=== PATIENT | male | born 1965 | race Caucasian/White ===

== ENCOUNTER 2020-02-24 14:45 | Outpatient (REF) | payer OTHER, SELFPAY | END 2020-02-24 14:46 | disposition home or self-care (01) | LOC: HO.LAB 14:45 | PROVIDERS: Visit Provider Internal Medicine | DX: Z20.828 Contact with and (suspected) exposure to other viral communicable diseases (principal) | CPT/HCPCS: C9803; U0003 ==

== ENCOUNTER → 2020-05-25 08:13 | Outpatient (BNVA) | payer OTHER, SELFPAY | PROVIDERS: PCP Internal Medicine; Visit Provider Physician Assistant ==

== ENCOUNTER 2020-06-10 08:51 | Day surgery (SDC) | payer OTHER, SELFPAY ==
[2020-06-04 14:10] VITALS: BMI 36.0
--- NOTE | 2020-06-09 10:59 | P.CONAN_ITS ---
Documented by User: Silvana Patterson 06/09/20 11:00 HPI - Anesthesia Eval Consult details Narrative: 54yo M for Colonoscopy [facility] Active Problems Active Problems: All Active Problems (Updated 05/25/20 @ 08:56 by Ashley Kapadia PA-C) Abdominal pain (Acute) Poor historian (Acute) Screening and evaluation for vasectomy (Acute) Physical exam (Acute) Past Medical History Medical History Abdominal pain Perianal abscess Physical exam Screening and evaluation for vasectomy Family History Family History Mother Cancer Father Alzheimer disease Surgical History Surgical History H/O hemorrhoidectomy Social History Social History Alcohol intake: never Smoking Status: Never smoker Advance Directives Information Provided: No Current occupational status: unemployed Meds Allergies Allergy/AdvReac Type Severity Reaction Status Date / Time No Known Allergies Allergy Verified 05/25/20 08:15 Exam Exam Date and Time: June 09, 2020 1059 Height,Weight and Vital Signs: Height 6 ft 1 in Weight 123.831 kg Assessment and Plan Assessment Anesthesia Assessment: Chart Reviewed Documented by User: Jenny Bianchi 06/10/20 09:21 [facility] Past Medical History Medical History Abdominal pain Perianal abscess Physical exam Screening and evaluation for vasectomy Family History Family History Mother Cancer Father Alzheimer disease Surgical History Surgical History H/O hemorrhoidectomy Social History Social History Alcohol intake: never Smoking Status: Never smoker Advance Directives Information Provided: No Current occupational status: unemployed Meds Allergies Allergy/AdvReac Type Severity Reaction Status Date / Time No Known Allergies Allergy Verified 05/25/20 08:15 Exam Airway Mallampati Class: II Partial: Upper Loose/Missing/Broken Teeth: Yes and Upper Heart: RRR Lungs: CTA Assessment and Plan Assessment Anesthesia Assessment: Anesthesia Plan Discussed and Chart Reviewed Final Anesthetic Review NPO: Yes ASA Class: II Final Preanesthetic Review: Meds/Allgs Chart Reviewed, Consent Obtained/Reviewed and Anes Risks/Benef Reviewed Patient Risk: Low Procedure Risk: Low Anesthetic Plan Anesthetic Plan: MAC: Disposition: Standard PACU
--- NOTE | 2020-06-10 09:16 | P.OP_ITS ---
Operative Note Operative Note Date of Service: 06/10/20 Narrative: Pre-op diagnosis: Colon cancer screening, abdominal pain Post-op diagnosis: other (Colon polyps, diverticulosis, hemorrhoids) Procedure: COLONOSCOPY TILL CECUM WITH BIOPSIES AND SNARE POLYPECTOMY Consent: Indications for the procedure and potential complications of bleeding, perforation, reaction to medications and missed diagnosis were discussed with the patient and informed consent was obtained. Instrument: Olympus PCF H 190 L variable stiffness pediatric colonoscope Monitoring: Vital signs and clinical assessment, intermittent blood pressure monitoring, continuous EKG monitoring, Pulse oximetry and Carbon Dioxide monitoring were done throughout the procedure. Colon withdrawl time was 20 minutes. Procedure: The patient was placed in the left lateral decubitis position and pre-procedure medications were administered. After a digital rectal examination of the ano-rectum, the video colonoscope was inserted into the rectum and advanced through the colon to the cecum. The colonoscope was slowly withdrawn in a retrograde panoramic fashion and the colon mucosa was carefully examined including a retroflexed view of the rectum. Findings and interventions are described below. Procedure Difficulty: Without difficulty Findings: Terminal Ileum: Not evaluated Cecum: A 2-3 mm polyp was removed by cold biopsy. Ascending Colon: A 10 mm sessile polyp in the proximal ascending colon removed with a cold snare and remaining polyp was removed with the cold biopsy. Transverse Colon: Normal Descending Colon: Normal Sigmoid Colon: 10 mm sessile polyp was removed with a cold snare and moderate diverticulosis Rectum: Normal Ano-rectum: Moderate internal hemorrhoids Colon preparation: Good after copious irrigation Impression and Post Procedure Diagnosis: Colonoscopy Findings: Three small to medium sized polyps removed Moderate diverticulosis seen in the sigmoid colon Moderate hemorrhoids on retroflexed exam. Plan: Await pathology results Patient has an appointment on 07/08/20 in the GI Clinic with JESSICA Galvez. Repeat Colonoscopy interval based on path results - in 3-5 years if polyps are adenomatous and 10 years if polyps are hyperplastic. Above findings were reviewed with the patient and colon polyps and diverticulosis handouts were given in the discharge area Surgeon: Barrett Camacho MD Anesthesia: MAC (Gerda Shaw, IRENE) Account Executive Metalworking: Kesha Ballard Estimated blood loss (mL): 0 Pathology: other (A. cecal polyp x 1, B. AC polyp x 1, C. SC polyp x 1) Condition: stable Disposition: PACU
--- NOTE | 2020-06-10 09:16 | MHC.SHP ---
Pre-Procedural Eval Section A The patient is an INPATIENT: No Changes since office visit: Yes Patient answered all questions; No Cold of Flu in the past 2 weeks, No New Medical Problems and No Changes in Medication The History & Physical has been completed within 30 days and I have reviewed it.: Yes Section B Chief Complaint: Screening Allergies: Allergies Allergy/AdvReac Type Severity Reaction Status Date / Time No Known Allergies Allergy Verified 05/25/20 08:15 Exam Surgical H&P Exam: Normal: Heart, Normal: Lungs, Normal: Extremities and Normal: Abdomen Plan Diagnosis/Plan: Unchanged I have reviewed the history and physical and performed a pertinent physical examination on my patient. No changes have occurred unless specified.
[2020-06-10 09:24] VITALS: BP 114/75; PULSE 57; RESP 18; TEMP 36.6; O2SAT 99
[2020-06-10] MEDS: Lactated Ringers 1,000 ML 100 ML IVCONT (09:40)
[2020-06-10 10:34] VITALS: BP 115/60; PULSE 65; RESP 20; TEMP 36.6; O2SAT 98
[2020-06-10 10:47] VITALS: BP 115/75; PULSE 72; RESP 18
== END 2020-06-10 11:45 | disposition home or self-care (01) ==
PROVIDERS: PCP Internal Medicine; Visit Provider Internal Medicine Gastroenterology
PROC: 0DJD8ZZ Inspection of Lower Intestinal Tract, Via Natural or Artificial Opening Endoscopic (ICD-10-PCS; CPT 45378; principal; 2020-06-10 09:50)
DX: Z12.11 Encounter for screening for malignant neoplasm of colon (principal); D12.0 Benign neoplasm of cecum; D12.2 Benign neoplasm of ascending colon; D12.5 Benign neoplasm of sigmoid colon; R10.9 Unspecified abdominal pain; K57.30 Diverticulosis of large intestine without perforation or abscess without bleeding; K64.8 Other hemorrhoids
CPT/HCPCS: 45385; 45380; 88305

== ENCOUNTER → 2020-07-08 12:31 | Outpatient (BNVA) | payer OTHER, SELFPAY | PROVIDERS: PCP Internal Medicine; Visit Provider Physician Assistant ==

== ENCOUNTER 2024-08-29 17:07 | Inpatient (IN) | payer OTHER, SELFPAY ==
--- OUTSIDE RECORDS SUMMARY | 2024-08-29 17:14 | XMS_ITS | Patient Health Record ---
Author Organization [facility] Address [address], [place] [id number] Care Team Providers Care Software Test And Validation Engineer Name Role Phone NO, PCP Primary Care Provider [phone] Iglesias Unavailable [phone] Reason For Referral No Information Plan Of Treatment No Information Insurance Providers Payer Name Payer Address Payer Phone Subscriber Number Group Number Insured Name Patient Relationship to Insured Coverage Start Date Coverage End Date [place] Medicaid Standard [address] [place] [address] [id number] Dmitriy Hillman Self - patient is the insured 2 2
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
[2024-08-29 17:34] VITALS: BMI 28.0
[2024-08-29 17:38] VITALS: BP 137/70; PULSE 68; RESP 16; TEMP 36; O2SAT 99
[2024-08-29 18:28] LABS: Anion Gap 12 (12-20); Blood Urea Nitrogen 12 mg/dL (9-16); Calcium 8.9 mg/dL (8.4-10.2); Carbon Dioxide 28 mmol/L (22-29); Chloride 104 mmol/L (96-108); Creatinine Clr Calc Pharmacy 149.7; Estimated Glomerular Filt Rate > 60; Potassium 3.8 mmol/L (3.3-5.1); Sodium 140 mmol/L (135-145)
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
--- NOTE | 2024-08-29 19:33 | PC.NURSE ---
Patient declined to sign JOSE M.
[2024-08-29 19:49] VITALS: BP 135/62; PULSE 83; RESP 16; TEMP 36.4; O2SAT 99
[2024-08-30 07:43] LABS: MANUAL DIFF FLAG NO
[2024-08-30 07:50] LABS: Hematocrit 35.3 % (42.0-52.0); Hemoglobin 11.9 g/dl (14.0-18.0); Imm Gran Abs Auto 0.01 X10*3/uL (0.00-0.03); Imm Gran Pct Auto 0.2 % (0.0-0.4); Lymphocytes Absolute Auto 2.1 X10*3/uL (1.2-4.9); Mean Corpuscular HGB Conc 33.7 g/dl (31.0-36.0); Mean Corpuscular Hemoglobin 29.8 pg (27.0-33.0); Mean Corpuscular Volume 88.5 fL (80.0-98.0); NRBC Abs Auto 0.000 X10*3/uL (0.0-0.012); NRBC Pct Auto 0.0 /100WBC (0.0-0.2); Platelet Count 277 X10*3/uL (160-400); Red Blood Count 3.99 X10*6/uL (4.60-5.80); White Blood Count 5.7 X10*3/uL (4.8-10.8)
[2024-08-30 08:00] VITALS: BP 127/61; PULSE 80; RESP 14; TEMP 36; O2SAT 100
[2024-08-30 08:12] LABS: Alanine Aminotransferase 19 U/L (0-40); Albumin Level 3.6 g/dL (3.5-5.0); Alkaline Phosphatase 68 U/L (39-117); Aspartate Amino Transferase 28 U/L (5-37); Cholesterol 178 mg/dL (<200); HDL Cholesterol 60 mg/dL (>40); Hemoglobin A1C 98.1202 umol/L; Total Hemoglobin (HGBA1C) 3086.8472 umol/L; Total Protein 6.6 g/dL (6.5-8.0); Triglycerides 69 mg/dL (<150)
[2024-08-30 08:26] LABS: Free T4 (Free Thyroxine) 0.92 ng/dL (0.71-1.85); Thyroid Stimulating Hormone 2.66 uIU/mL (0.32-4.0)
[2024-08-30 08:44] LABS: Folate 4.8 ng/mL (> or = 4.0); Vitamin B12 < 148 pg/mL (200-900)
--- NOTE | 2024-08-30 11:14 | HO.PM.IMCN ---
History of Present Illness Data of Consult Service Date: 08/30/24 Primary Care Provider: None Physician [facility] Reason for consult: Admission H&P Pt is a 59-year-old male with a PMH significant for?GERD, polysubstance use disorder, anxiety, depression, and bipolar disorder who is admitted to M3 psychiatry unit for increasing depression with SI with plan to cut himself. Pt reports has been having SI for many years, though worsening recently, and has been hearing voices and dreams telling him to kill himself. Medical consult for admission H&P. Pt complains acid reflux-like symptoms began earlier in the day after eating and taking medications. States has a burning sensation in epigastric area and in his throat. Reports previous hx of GERD that has been well-controlled in the past few years. Pt has not followed with a PCP in many years and not currently on any home medications. Denies chest pressure. ?No fever, chills, nausea, vomiting. Denies shortness or breath or difficulty breathing. Hx of IVDU, last injected 10 days ago. Review of Systems Review of Systems: Negative except for that which is stated in the HPI [facility] Medical History Perianal abscess Abdominal pain Screening and evaluation for vasectomy Physical exam Family History Mother Cancer Father Alzheimer disease Surgical History H/O hemorrhoidectomy Social History Household Members: None Household Members Other:: Lives with friends Housing: Apartment Do you presently have visiting nurse or other home services: No Alcohol intake: current Alcohol intake frequency: 3 or more drinks per day Patient Tobacco Use Status: Never used Tobacco e-Cigarette/Vaping Use: Never Used Substance Use Type: Crack/Cocaine Currently Displaying Signs/Symptoms of Drug Intoxication Withdrawal: No Have you been hit, kicked, punched, or otherwise hurt by someone within the past year? If so, by whom?: No Do you feel safe in your current relationship?: No Current Relationship Is there a partner from a previous relationship who is making you feel unsafe now?: No Are you made to feel afraid or neglected: No Advance Directives: No Advance Directives Information Provided: No Do you have thoughts of harming others: None Do you have a plan to hurt others: No Plan Recently lost weight without trying: No How much weight loss: Not applicable Eating poorly because of decreased appetite: No Nutrition screen score: 0 Nutrition Risks: No Nutritional Risk Poor oral hygiene: No Current occupational status: unemployed Meds Allergies Allergy/AdvReac Type Severity Reaction Status Date / Time No Known Allergies Allergy Verified 07/08/20 12:32 Active Medications: Current Medications Acetaminophen (Acetaminophen 325 Mg Tablet) 650 mg PO Q6H PRN PRN Reason: Headache/Pain, Scale 1-10 Al Hydroxide/Mg Hydroxide (Magnesium Hydrox/Alum Hydrox 30 Ml Oral.Susp) 30 ml PO Q6H PRN PRN Reason: Heartburn/Nausea Hydroxyzine HCl (Hydroxyzine Hcl 25 Mg Tablet) 25 mg PO Q6H PRN PRN Reason: mild anxiety Lorazepam (Lorazepam 1 Mg Tablet) 1 mg PO Q2H PRN PRN Reason: CIWA 8-11 Lorazepam (Lorazepam 1 Mg Tablet) 2 mg PO Q2H PRN PRN Reason: CIWA 12-15 Lorazepam (Lorazepam 1 Mg Tablet) 3 mg PO Q2H PRN PRN Reason: CIWA > 15, and call Magnesium Hydroxide (Milk Of Magnesia 30 Ml Oral.Susp) 30 ml PO DAILY PRN PRN Reason: Constipation Nicotine Polacrilex (Nicotine Polacrilex 2 Mg Gum) 4 mg BUCCAL Q2H PRN PRN Reason: Nicotine Cravings Thiamine HCl (Thiamine Hcl 100 Mg Tablet) 100 mg PO DAILY [facility] Last Admin: 08/30/24 08:44 Dose: 100 mg Trazodone HCl (Trazodone Hcl 50 Mg Tablet) 50 mg PO BEDTIME MRX1 PRN PRN Reason: Insomnia Home Medications ?Medication ?Instructions ?Recorded ?Confirmed ?Last Taken ?Type No Known Home Meds 07/08/20 08/29/24 Unknown History Physical Exam Vital Signs and Narrative: Vital Signs: Last Vital Signs Temp 96.8 F 08/30/24 08:00 Pulse 80 08/30/24 08:00 Resp 14 08/30/24 08:00 BP 127/61 08/30/24 08:00 Pulse Ox 100 08/30/24 08:00 O2 Del Method Room Air 08/30/24 08:00 BMI result Body Mass Index 28.0 General: AOx3, no acute distress Resp: CTA bilaterally CVS: S1, S2, RRR GI: +BS, NT, no distention Skin: Warm, dry Chest: NT to palpation Neuro: Cranial nerves II-XII grossly intact bilaterally. Motor grossly intact bilaterally Extremities: No edema Psych: Restless, slightly agitated Results Labs 08/30/24 07:20 08/29/24 18:07 Labs: Laboratory Results - last 24 hr 08/29/24 08/30/24 18:07 07:20 MCV 88.5 MCH 29.8 MCHC 33.7 RDW 13.7 Plt Count 277 MPV 8.6 L Immature Gran % (Auto) 0.2 Neut % (Auto) 51.4 Lymph % (Auto) 36.0 [place] % (Auto) 8.9 Eos % (Auto) 3.0 Baso % (Auto) 0.5 Lymph # (Auto) 2.1 [place] # (Auto) 0.5 Eos # (Auto) 0.2 Baso # (Auto) 0.0 Abs Immat Gran (auto) 0.01 Absolute Neuts (auto) 2.9 Absolute Nucleated RBC 0.000 Nucleated RBC % (auto) 0.0 Anion Gap 12 Estim Creat Clear Calc 149.7 Estimated GFR > 60 Random Glucose 100 Estimat Average Glucose 100 Hemoglobin A1c % 5.1 Calcium 8.9 Total Bilirubin 0.5 Direct Bilirubin 0.2 AST 28 ALT 19 Alkaline Phosphatase 68 Total Protein 6.6 Albumin 3.6 Triglycerides 69 Cholesterol 178 LDL Cholesterol, Calc 105 H HDL Cholesterol 60 Vitamin B12 < 148 L Folate 4.8 TSH 2.66 Free T4 0.92 Assessment and Plan (1) Medical clearance for psychiatric admission: Status: Acute Plan Pt is a 59-year-old male with a PMH significant for?GERD, polysubstance use disorder, anxiety, depression, and bipolar disorder who is admitted to M3 psychiatry unit for increasing depression with SI with plan to cut himself. Pt reports has been having SI for many years, though worsening recently, and has been hearing voices and dreams telling him to kill himself. Medical consult for admission H&P. Mood disorder Plan as per psychiatry GERD Complaining of epigastric and throat burning after eating and taking meds Omeprazole 40mg daily x14 days Pt otherwise has no acute medical complaints or known chronic medical conditions. Will sign off for now. Thank you for allowing us to participate in the care of this pt. Please re-consult if any acute issue or need arises.
[2024-08-30] MEDS: Magnesium Hydrox/Alum Hydrox 30 ML ORAL.SUSP PO (13:42)
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
[2024-08-30 20:07] VITALS: BP 135/75; PULSE 54; RESP 16; TEMP 36.2; O2SAT 97
[2024-08-31 08:00] VITALS: BP 103/52; PULSE 58; RESP 17; TEMP 35.9; O2SAT 99
--- NOTE | 2024-08-31 14:38 | P.PNPSI_ITS ---
Subjective Subjective Date of Service: 08/31/24 Reason For Visit: Mental Health Crisis Interim History: improved, fewer AH. per staff, slept 8 hours. isolative. CAH to kill self. Mental Status Exam Mental Status Exam Narrative: adequately dressed and groomed. cooperative. no PMA/PMR. speech nml rate, amount, loudness, tone, latency. thoughts linear, logical. affect full range, flexible, normo-intense, non-labile. mood improving. AH lessening. no SI/HI/VH expressed. Diagnostics Vital Signs (24Hr): Vital Signs - 24 hr 08/30/24 20:07 08/31/24 08:00 Temperature 97.2 F 96.6 F L Pulse Rate 54 58 Respiratory Rate 16 17 Blood Pressure 135/75 103/52 L Pulse Oximetry 97 99 Oxygen Delivery Method Room Air Room Air BMI result Body Mass Index 28.0 Labs 08/30/24 07:20 08/29/24 18:07 Labs: Laboratory Results - last 48 hr 08/29/24 08/30/24 18:07 07:20 WBC 5.7 RBC 3.99 L Hgb 11.9 L Hct 35.3 L MCV 88.5 MCH 29.8 MCHC 33.7 RDW 13.7 Plt Count 277 MPV 8.6 L Immature Gran % (Auto) 0.2 Neut % (Auto) 51.4 Lymph % (Auto) 36.0 [place] % (Auto) 8.9 Eos % (Auto) 3.0 Baso % (Auto) 0.5 Lymph # (Auto) 2.1 [place] # (Auto) 0.5 Eos # (Auto) 0.2 Baso # (Auto) 0.0 Abs Immat Gran (auto) 0.01 Absolute Neuts (auto) 2.9 Absolute Nucleated RBC 0.000 Nucleated RBC % (auto) 0.0 Sodium 140 Potassium 3.8 Chloride 104 Carbon Dioxide 28 Anion Gap 12 BUN 12 Creatinine 0.65 Estim Creat Clear Calc 149.7 Estimated GFR > 60 Random Glucose 100 Estimat Average Glucose 100 Hemoglobin A1c % 5.1 Calcium 8.9 Total Bilirubin 0.5 Direct Bilirubin 0.2 AST 28 ALT 19 Alkaline Phosphatase 68 Total Protein 6.6 Albumin 3.6 Triglycerides 69 Cholesterol 178 LDL Cholesterol, Calc 105 H HDL Cholesterol 60 Vitamin B12 < 148 L Folate 4.8 TSH 2.66 Free T4 0.92 Medications Medications Current Medications Acetaminophen (Acetaminophen 325 Mg Tablet) 650 mg PO Q6H PRN PRN Reason: Headache/Pain, Scale 1-10 Al Hydroxide/Mg Hydroxide (Magnesium Hydrox/Alum Hydrox 30 Ml Oral.Susp) 30 ml PO Q6H PRN PRN Reason: Heartburn/Nausea Last Admin: 08/30/24 13:42 Dose: 30 ml Fluphenazine HCl (Fluphenazine Hcl 2.5 Mg Tablet) 2.5 mg PO BID [facility] Last Admin: 08/31/24 08:43 Dose: 2.5 mg Fluphenazine HCl (Fluphenazine Hcl 2.5 Mg Tablet) 2.5 mg PO Q4H PRN PRN Reason: agitation/AH Hydroxyzine HCl (Hydroxyzine Hcl 25 Mg Tablet) 25 mg PO Q6H PRN PRN Reason: mild anxiety Magnesium Hydroxide (Milk Of Magnesia 30 Ml Oral.Susp) 30 ml PO DAILY PRN PRN Reason: Constipation Nicotine Polacrilex (Nicotine Polacrilex 2 Mg Gum) 4 mg BUCCAL Q2H PRN PRN Reason: Nicotine Cravings Omeprazole (Omeprazole 40 Mg Capsule.Dr) 40 mg PO DAILY@0630 [facility] Stop: 09/12/24 06:31 Last Admin: 08/31/24 06:40 Dose: 40 mg Sertraline HCl (Sertraline Hcl 50 Mg Tablet) 50 mg PO DAILY [facility] Last Admin: 08/31/24 08:42 Dose: 50 mg Thiamine HCl (Thiamine Hcl 100 Mg Tablet) 100 mg PO DAILY [facility] Last Admin: 08/31/24 08:44 Dose: 100 mg Trazodone HCl (Trazodone Hcl 50 Mg Tablet) 50 mg PO BEDTIME MRX1 PRN PRN Reason: Insomnia Allergies Allergies Allergy/AdvReac Type Severity Reaction Status Date / Time No Known Allergies Allergy Verified 07/08/20 12:32 Assessment & Plan Assessment & Plan (1) Auditory hallucinations: Status: Acute Code(s): R44.0 - Auditory hallucinations (2) Depressive disorder: Status: Acute Code(s): F32.A - Depression, unspecified (3) Medical clearance for psychiatric admission: Status: Acute Code(s): Z00.8 - Encounter for other general examination Assessment and Plan: Pt is a 59-year-old male with a PMH significant for?GERD, polysubstance use disorder, anxiety, depression, and bipolar disorder who is admitted to M3 psychiatry unit for increasing depression with SI with plan to cut himself. Pt reports has been having SI for many years, though worsening recently, and has been hearing voices and dreams telling him to kill himself. Medical consult for admission H&P. Mood disorder Plan as per psychiatry GERD Complaining of epigastric and throat burning after eating and taking meds Omeprazole 40mg daily x14 days Pt otherwise has no acute medical complaints or known chronic medical conditions. Will sign off for now. Thank you for allowing us to participate in the care of this pt. Please re-consult if any acute issue or need arises. Plan 08/30: start prolixin 2.5 BID with PRNs for AH. start zoloft 50 daily for depression. supportive care for cocaine and opioid withdrawal. low scores on CIWA overnight and reportedly hasn't drunk in 4 days, so DC CIWA protocol as not necessary. 08/31: mood improving, AH decreasing. c/o VERGARA. start ibuprofen PRN. low B12 - start supplementation. Reason for continued inpatient stay Substantial Risk for: inability to function Time Spent With Patient Time: Total time managing care of this patient today ____ minutes.
--- NOTE | 2024-08-31 14:53 | MHC.RECOVRN ---
Met with pt to discuss substance use and drinking habits. Pt interested in discussing NADIR with provider. Pt declined outpatient DENISE appointment at the [facility] for further treatment. No further questions or concerns offered at this time. Discussed with Shahab Michel NP.
[2024-08-31 20:00] VITALS: BP 125/68; PULSE 54; RESP 16; TEMP 36.4; O2SAT 99
[2024-09-01 07:49] VITALS: BP 114/58; PULSE 55; RESP 20; TEMP 35.7; O2SAT 20
--- NOTE | 2024-09-01 12:55 | HO.PSYCHPN ---
Subjective Subjective Date of Service: 09/01/24 Reason For Visit: Mental Health Crisis Interim History: calm, cooperative, pleasant. so-so. c/o insomnia and nightmares, also dry mouth. agrees to change antipsychotic and to add prazosin. per staff, taking meds. CAH at [facility]. refusing groups. racing thoughts. tossing and turning 2/2 nightmares. slept 8 hours. Mental Status Exam Mental Status Exam Narrative: adequately dressed and groomed. cooperative. no PMA/PMR. speech nml rate, amount, loudness, tone, latency. thoughts linear, logical. affect full range, flexible, normo-intense, non-labile. mood improving. AH lessening. no SI/HI/VH expressed. Diagnostics Vital Signs (24Hr): Vital Signs - 24 hr 08/31/24 20:00 09/01/24 07:49 Temperature 97.6 F 96.2 F L Pulse Rate 54 55 Respiratory Rate 16 20 Blood Pressure 125/68 114/58 L Pulse Oximetry 99 20 L Oxygen Delivery Method Room Air Room Air BMI result Body Mass Index 28.0 Labs 08/30/24 07:20 08/29/24 18:07 Medications Medications Current Medications Acetaminophen (Acetaminophen 325 Mg Tablet) 650 mg PO Q6H PRN PRN Reason: Headache/Pain, Scale 1-10 Last Admin: 08/31/24 20:37 Dose: 650 mg Al Hydroxide/Mg Hydroxide (Magnesium Hydrox/Alum Hydrox 30 Ml Oral.Susp) 30 ml PO Q6H PRN PRN Reason: Heartburn/Nausea Last Admin: 08/30/24 13:42 Dose: 30 ml Cyanocobalamin (Cyanocobalamin (Vitamin B-12) 1,000 Mcg Tablet) 1,000 mcg PO DAILY [facility] Last Admin: 09/01/24 08:41 Dose: 1,000 mcg Folic Acid (Folic Acid 1 Mg Tablet) 1 mg PO DAILY [facility] Last Admin: 09/01/24 08:41 Dose: 1 mg Haloperidol (Haloperidol 0.5 Mg Tablet) 2.5 mg PO BID [facility] Haloperidol (Haloperidol 0.5 Mg Tablet) 2.5 mg PO Q6H PRN PRN Reason: agitation Ibuprofen (Ibuprofen 600 Mg Tablet) 600 mg PO Q6H PRN PRN Reason: pain (pain scale 1-10) Magnesium Hydroxide (Milk Of Magnesia 30 Ml Oral.Susp) 30 ml PO DAILY PRN PRN Reason: Constipation Nicotine Polacrilex (Nicotine Polacrilex 2 Mg Gum) 4 mg BUCCAL Q2H PRN PRN Reason: Nicotine Cravings Omeprazole (Omeprazole 40 Mg Capsule.Dr) 40 mg PO DAILY@0630 [facility] Stop: 09/12/24 06:31 Last Admin: 09/01/24 06:42 Dose: 40 mg Prazosin HCl (Prazosin Hcl 1 Mg Capsule) 1 mg PO BEDTIME NICKI; Protocol Sertraline HCl (Sertraline Hcl 50 Mg Tablet) 50 mg PO DAILY [facility] Last Admin: 09/01/24 08:41 Dose: 50 mg Thiamine HCl (Thiamine Hcl 100 Mg Tablet) 100 mg PO DAILY [facility] Last Admin: 09/01/24 08:41 Dose: 100 mg Trazodone HCl (Trazodone Hcl 50 Mg Tablet) 50 mg PO BEDTIME MRX1 PRN PRN Reason: Insomnia Allergies Allergies Allergy/AdvReac Type Severity Reaction Status Date / Time No Known Allergies Allergy Verified 07/08/20 12:32 Assessment & Plan Assessment & Plan (1) Auditory hallucinations: Status: Acute Code(s): R44.0 - Auditory hallucinations (2) Depressive disorder: Status: Acute Code(s): F32.A - Depression, unspecified (3) Medical clearance for psychiatric admission: Status: Acute Code(s): Z00.8 - Encounter for other general examination Assessment and Plan: Pt is a 59-year-old male with a PMH significant for?GERD, polysubstance use disorder, anxiety, depression, and bipolar disorder who is admitted to psychiatry unit for increasing depression with SI with plan to cut himself. Pt reports has been having SI for many years, though worsening recently, and has been hearing voices and dreams telling him to kill himself. Medical consult for admission H&P. Mood disorder Plan as per psychiatry GERD Complaining of epigastric and throat burning after eating and taking meds Omeprazole 40mg daily x14 days Pt otherwise has no acute medical complaints or known chronic medical conditions. Will sign off for now. Thank you for allowing us to participate in the care of this pt. Please re-consult if any acute issue or need arises. Plan 08/30: start prolixin 2.5 BID with PRNs for AH. start zoloft 50 daily for depression. supportive care for cocaine and opioid withdrawal. low scores on CIWA overnight and reportedly hasn't drunk in 4 days, so DC CIWA protocol as not necessary. 08/31: mood improving, AH decreasing. c/o VERGARA. start ibuprofen PRN. low B12 - start supplementation. 09/01: nightmares, poor sleep, dry mouth. DC prolixin, start haldol. add prazosin at [facility]. Reason for continued inpatient stay Substantial Risk for: inability to function Time Spent With Patient Time: Total time managing care of this patient today __25__ minutes.
[2024-09-01 21:40] VITALS: BP 127/70; PULSE 64; RESP 16; TEMP 35.9; O2SAT 100
[2024-09-02 07:32] VITALS: BP 117/55; PULSE 63; RESP 14; TEMP 36; O2SAT 99
--- NOTE | 2024-09-02 14:56 | P.PNPSI_ITS ---
Subjective Subjective Date of Service: 09/02/24 Reason For Visit: Mental Health Crisis Interim History: calm, cooperative. c/o difficulty sleeping. agreeable to DC haldol and try a more sedating antipsychotic. also to increase prazosin. discussion held around naltrexone and antabuse for AUD; pt will think about it. per staff, dep 7 anx 8. eating 50%. not attending groups. c/o AH calling his name at night. no CAH. eves AH lessened. taking meds, c/o nightmares. slept 7 hours. Mental Status Exam Mental Status Exam Narrative: adequately dressed and groomed. cooperative. no PMA/PMR. speech nml rate, amount, loudness, tone, latency. thoughts linear, logical. affect full range, flexible, normo-intense, non-labile. mood improving. AH lessening. no SI/HI/VH expressed. Diagnostics Vital Signs (24Hr): Vital Signs - 24 hr 09/01/24 21:40 09/02/24 07:32 Temperature 96.6 F L 96.8 F Pulse Rate 64 63 Respiratory Rate 16 14 Blood Pressure 127/70 117/55 L Pulse Oximetry 100 99 Oxygen Delivery Method Room Air Room Air BMI result Body Mass Index 28.0 Labs 08/30/24 07:20 08/29/24 18:07 Medications Medications Current Medications Acetaminophen (Acetaminophen 325 Mg Tablet) 650 mg PO Q6H PRN PRN Reason: Headache/Pain, Scale 1-10 Last Admin: 08/31/24 20:37 Dose: 650 mg Al Hydroxide/Mg Hydroxide (Magnesium Hydrox/Alum Hydrox 30 Ml Oral.Susp) 30 ml PO Q6H PRN PRN Reason: Heartburn/Nausea Last Admin: 08/30/24 13:42 Dose: 30 ml Cyanocobalamin (Cyanocobalamin (Vitamin B-12) 1,000 Mcg Tablet) 1,000 mcg PO DAILY NICKI Last Admin: 09/02/24 08:28 Dose: 1,000 mcg Folic Acid (Folic Acid 1 Mg Tablet) 1 mg PO DAILY [facility]I Last Admin: 09/02/24 08:28 Dose: 1 mg Haloperidol (Haloperidol 5 Mg Tablet) 2.5 mg PO BID NICKI Last Admin: 09/02/24 08:30 Dose: 2.5 mg Haloperidol (Haloperidol 5 Mg Tablet) 2.5 mg PO Q6H PRN PRN Reason: agitation Ibuprofen (Ibuprofen 600 Mg Tablet) 600 mg PO Q6H PRN PRN Reason: pain (pain scale 1-10) Magnesium Hydroxide (Milk Of Magnesia 30 Ml Oral.Susp) 30 ml PO DAILY PRN PRN Reason: Constipation Nicotine Polacrilex (Nicotine Polacrilex 2 Mg Gum) 4 mg BUCCAL Q2H PRN PRN Reason: Nicotine Cravings Omeprazole (Omeprazole 40 Mg Capsule.Dr) 40 mg PO DAILY@0630 [facility] Stop: 09/12/24 06:31 Last Admin: 09/02/24 06:27 Dose: 40 mg Prazosin HCl (Prazosin Hcl 1 Mg Capsule) 1 mg PO BEDTIME [facility]ICKI; Protocol Last Admin: 09/01/24 21:47 Dose: 1 mg Sertraline HCl (Sertraline Hcl 50 Mg Tablet) 50 mg PO DAILY [facility] Last Admin: 09/02/24 08:28 Dose: 50 mg Thiamine HCl (Thiamine Hcl 100 Mg Tablet) 100 mg PO DAILY [facility] Last Admin: 09/02/24 08:28 Dose: 100 mg Trazodone HCl (Trazodone Hcl 50 Mg Tablet) 50 mg PO BEDTIME MRX1 PRN PRN Reason: Insomnia Last Admin: 09/02/24 02:31 Dose: 50 mg Allergies Allergies Allergy/AdvReac Type Severity Reaction Status Date / Time No Known Allergies Allergy Verified 07/08/20 12:32 Assessment & Plan Assessment & Plan (1) Auditory hallucinations: Status: Acute Code(s): R44.0 - Auditory hallucinations (2) Depressive disorder: Status: Acute Code(s): F32.A - Depression, unspecified (3) Medical clearance for psychiatric admission: Status: Acute Code(s): Z00.8 - Encounter for other general examination Assessment and Plan: Pt is a 59-year-old male with a PMH significant for?GERD, polysubstance use disorder, anxiety, depression, and bipolar disorder who is admitted to psychiatry unit for increasing depression with SI with plan to cut himself. Pt reports has been having SI for many years, though worsening recently, and has been hearing voices and dreams telling him to kill himself. Medical consult for admission H&P. Mood disorder Plan as per psychiatry GERD Complaining of epigastric and throat burning after eating and taking meds Omeprazole 40mg daily x14 days Pt otherwise has no acute medical complaints or known chronic medical conditions. Will sign off for now. Thank you for allowing us to participate in the care of this pt. Please re-consult if any acute issue or need arises. Plan 08/30: start prolixin 2.5 BID with PRNs for AH. start zoloft 50 daily for depression. supportive care for cocaine and opioid withdrawal. low scores on CIWA overnight and reportedly hasn't drunk in 4 days, so DC CIWA protocol as not necessary. 08/31: mood improving, AH decreasing. c/o VERGARA. start ibuprofen PRN. low B12 - start supplementation. 09/01: nightmares, poor sleep, dry mouth. DC prolixin, start haldol. add prazosin at HS. 09/02: c/o worsened sleep, etiology unclear. possible akathisia. DC haldol and start trial of zyprexa 10 QHS. increase prazosin to 2 mg QHS. AH continue to improve. otherwise continue current mgmt. Reason for continued inpatient stay Substantial Risk for: inability to function and rapid decompensation Time Spent With Patient Time: Total time managing care of this patient today __25__ minutes.
[2024-09-02 20:38] VITALS: BP 101/57; PULSE 61; RESP 16; TEMP 36.3; O2SAT 98
[2024-09-03 07:48] VITALS: BP 123/72; PULSE 65; RESP 20; TEMP 36.7; O2SAT 99
--- NOTE | 2024-09-03 09:19 | P.PNPSI_ITS ---
Subjective Subjective Date of Service: 09/03/24 Reason For Visit: Mental Health Crisis Subjective Notes: Conditional Voluntary Medical Problems Affecting Mental Status: No Interim History: Patient notes that his mood is not so good. he reports mild anxiety and severe depression. He is unable to get a good or restful sleep. He reports CAH to kill himself; the voices are usually present at night. The voices are not the reason for his sleep disturbance as he was able to sleep with them. He constantly thinks about his current mental health status and believes there is no way to get relief. He denies HI/VH. Patient is [place]-speaking only. 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 Medication Compliance: Yes Side effects from medications: No Attending Groups: No Review of Systems Acute medical concerns: No Mental Status Exam Mental Status Exam Narrative: Appearance: Casually dressed, adequate hygiene Behavior: Calm and cooperative throughout the interview. Eye contact is appropriate, and there are no signs of psychomotor agitation or retardation Speech: Normal volume and prosody Thought process: logical and goal-directed Thought content: SI Mood: Not so good Affect: Flat SI:reports HI:denies VH/AH:reports CAH Delusions: None Insight/judgment: Fair insight and judgment Memory/cog: Alert, oriented x 4. grossly intact to conversational testing Diagnostics Vital Signs (24Hr): Vital Signs - 24 hr 09/02/24 20:38 09/03/24 07:48 Temperature 97.3 F 98.1 F Pulse Rate 61 65 Respiratory Rate 16 20 Blood Pressure 101/57 L 123/72 Pulse Oximetry 98 99 Oxygen Delivery Method Room Air Room Air BMI result Body Mass Index 28.0 Labs 08/30/24 07:20 08/29/24 18:07 Medications Medications Current Medications Acetaminophen (Acetaminophen 325 Mg Tablet) 650 mg PO Q6H PRN PRN Reason: Headache/Pain, Scale 1-10 Last Admin: 08/31/24 20:37 Dose: 650 mg Al Hydroxide/Mg Hydroxide (Magnesium Hydrox/Alum Hydrox 30 Ml Oral.Susp) 30 ml PO Q6H PRN PRN Reason: Heartburn/Nausea Last Admin: 08/30/24 13:42 Dose: 30 ml Cyanocobalamin (Cyanocobalamin (Vitamin B-12) 1,000 Mcg Tablet) 1,000 mcg PO DAILY NICKI Last Admin: 09/03/24 08:40 Dose: 1,000 mcg Folic Acid (Folic Acid 1 Mg Tablet) 1 mg PO DAILY [facility] Last Admin: 09/03/24 08:40 Dose: 1 mg Ibuprofen (Ibuprofen 600 Mg Tablet) 600 mg PO Q6H PRN PRN Reason: pain (pain scale 1-10) Magnesium Hydroxide (Milk Of Magnesia 30 Ml Oral.Susp) 30 ml PO DAILY PRN PRN Reason: Constipation Nicotine Polacrilex (Nicotine Polacrilex 2 Mg Gum) 4 mg BUCCAL Q2H PRN PRN Reason: Nicotine Cravings Olanzapine (Olanzapine 10 Mg Tablet) 10 mg PO BEDTIME [facility] Last Admin: 09/02/24 21:29 Dose: 10 mg Omeprazole (Omeprazole 40 Mg Capsule.Dr) 40 mg PO DAILY@0630 [facility] Stop: 09/12/24 06:31 Last Admin: 09/03/24 06:51 Dose: 40 mg Prazosin HCl (Prazosin Hcl 1 Mg Capsule) 2 mg PO BEDTIME [facility]; Protocol Last Admin: 09/02/24 21:29 Dose: 2 mg Sertraline HCl (Sertraline Hcl 50 Mg Tablet) 50 mg PO DAILY [facility] Last Admin: 09/03/24 08:40 Dose: 50 mg Thiamine HCl (Thiamine Hcl 100 Mg Tablet) 100 mg PO DAILY [facility] Last Admin: 09/03/24 08:40 Dose: 100 mg Trazodone HCl (Trazodone Hcl 50 Mg Tablet) 50 mg PO BEDTIME MRX1 PRN PRN Reason: Insomnia Last Admin: 09/03/24 01:37 Dose: 50 mg Allergies Allergies Allergy/AdvReac Type Severity Reaction Status Date / Time No Known Allergies Allergy Verified 07/08/20 12:32 Assessment & Plan Assessment & Plan (1) Auditory hallucinations: Status: Acute Code(s): R44.0 - Auditory hallucinations (2) Depressive disorder: Status: Acute Code(s): F32.A - Depression, unspecified (3) Medical clearance for psychiatric admission: Status: Acute Code(s): Z00.8 - Encounter for other general examination Assessment and Plan: Pt is a 59-year-old male with a PMH significant for?GERD, polysubstance use disorder, anxiety, depression, and bipolar disorder who is admitted to psychiatry unit for increasing depression with SI with plan to cut himself. Pt reports has been having SI for many years, though worsening recently, and has been hearing voices and dreams telling him to kill himself. Medical consult for admission H&P. Mood disorder Plan as per psychiatry GERD Complaining of epigastric and throat burning after eating and taking meds Omeprazole 40mg daily x14 days Pt otherwise has no acute medical complaints or known chronic medical conditions. Will sign off for now. Thank you for allowing us to participate in the care of this pt. Please re-consult if any acute issue or need arises. Plan 08/30: start prolixin 2.5 BID with PRNs for AH. start zoloft 50 daily for depression. supportive care for cocaine and opioid withdrawal. low scores on CIWA overnight and reportedly hasn't drunk in 4 days, so DC CIWA protocol as not necessary. 08/31: mood improving, AH decreasing. c/o VERGARA. start ibuprofen PRN. low B12 - start supplementation. 09/01: nightmares, poor sleep, dry mouth. DC prolixin, start haldol. add prazosin at HS. 09/02: c/o worsened sleep, etiology unclear. possible akathisia. DC haldol and start trial of zyprexa 10 QHS. increase prazosin to 2 mg QHS. AH continue to improve. otherwise continue current mgmt. 09/03: Patient notes that his mood is not so good. he reports mild anxiety and severe depression. He is unable to get a good or restful sleep. He reports CAH to kill himself; the voices are usually present at night. The voices are not the reason for his sleep disturbance as he was able to sleep with them. He constantly thinks about his current mental health status and believes there is no way to get relief. He denies HI/VH. Will increase Zyprexa to 15 mg at bedtime and sertraline to 75 mg daily. Will continue to monitor. Patient educated on: medication risk/benefits and therapeutic strategies Reason for continued inpatient stay Substantial Risk for: harm to self and rapid decompensation Time Spent With Patient Time: Total time managing care of this patient today ____ minutes.
[2024-09-03 19:35] VITALS: BP 140/75; PULSE 102; RESP 16; TEMP 36.4; O2SAT 100
[2024-09-03] MEDS: OLANZapine 7.5 MG TABLET 15 MG PO (20:26)
[2024-09-04 07:49] VITALS: BP 135/65; PULSE 60; RESP 16; TEMP 36.8; O2SAT 99
--- NOTE | 2024-09-04 16:56 | P.PNPSI_ITS ---
Subjective Subjective Date of Service: 09/04/24 Reason For Visit: Mental Health Crisis Interim History: c/o poor sleep, xerostomia. agreeable to lower zyprexa back to 10 mg at HS and to increase prazosin to 3 mg. per staff, blunted. taking meds. AH continue but it's fine. DFA. feeling slightly better mood-russell. c/o insomnia. staff report appears to sleep well. Mental Status Exam Mental Status Exam Narrative: adequately dressed and groomed. cooperative. no PMA/PMR. speech nml rate, amount, loudness, tone, latency. thoughts linear, logical. affect constricted, normo-intense, non-labile. mood improving. AH lessening. no SI/HI/VH expressed. Diagnostics Vital Signs (24Hr): Vital Signs - 24 hr 09/03/24 19:35 09/04/24 07:49 Temperature 97.6 F 98.2 F Pulse Rate 102 H 60 Respiratory Rate 16 16 Blood Pressure 140/75 H 135/65 Pulse Oximetry 100 99 Oxygen Delivery Method Room Air Room Air BMI result Body Mass Index 28.0 Labs 08/30/24 07:20 08/29/24 18:07 Medications Medications Current Medications Acetaminophen (Acetaminophen 325 Mg Tablet) 650 mg PO Q6H PRN PRN Reason: Headache/Pain, Scale 1-10 Last Admin: 08/31/24 20:37 Dose: 650 mg Al Hydroxide/Mg Hydroxide (Magnesium Hydrox/Alum Hydrox 30 Ml Oral.Susp) 30 ml PO Q6H PRN PRN Reason: Heartburn/Nausea Last Admin: 08/30/24 13:42 Dose: 30 ml Cyanocobalamin (Cyanocobalamin (Vitamin B-12) 1,000 Mcg Tablet) 1,000 mcg PO DAILY [facility] Last Admin: 09/04/24 08:39 Dose: 1,000 mcg Folic Acid (Folic Acid 1 Mg Tablet) 1 mg PO DAILY [facility] Last Admin: 09/04/24 08:38 Dose: 1 mg Ibuprofen (Ibuprofen 600 Mg Tablet) 600 mg PO Q6H PRN PRN Reason: pain (pain scale 1-10) Magnesium Hydroxide (Milk Of Magnesia 30 Ml Oral.Susp) 30 ml PO DAILY PRN PRN Reason: Constipation Nicotine Polacrilex (Nicotine Polacrilex 2 Mg Gum) 4 mg BUCCAL Q2H PRN PRN Reason: Nicotine Cravings Olanzapine (Olanzapine 10 Mg Tablet) 10 mg PO BEDTIME [facility] Omeprazole (Omeprazole 40 Mg Capsule.) 40 mg PO DAILY@0630 [facility] Stop: 09/12/24 06:31 Last Admin: 09/04/24 06:41 Dose: 40 mg Prazosin HCl (Prazosin Hcl 1 Mg Capsule) 3 mg PO BEDTIME [facility]; Protocol Sertraline HCl (Sertraline Hcl 25 Mg Tablet) 75 mg PO DAILY [facility] Last Admin: 09/04/24 08:39 Dose: 75 mg Thiamine HCl (Thiamine Hcl 100 Mg Tablet) 100 mg PO DAILY [facility] Last Admin: 09/04/24 08:39 Dose: 100 mg Trazodone HCl (Trazodone Hcl 50 Mg Tablet) 50 mg PO BEDTIME MRX1 PRN PRN Reason: Insomnia Last Admin: 09/04/24 02:28 Dose: 50 mg Allergies Allergies Allergy/AdvReac Type Severity Reaction Status Date / Time No Known Allergies Allergy Verified 07/08/20 12:32 Assessment & Plan Assessment & Plan (1) Auditory hallucinations: Status: Acute Code(s): R44.0 - Auditory hallucinations (2) Depressive disorder: Status: Acute Code(s): F32.A - Depression, unspecified (3) Medical clearance for psychiatric admission: Status: Acute Code(s): Z00.8 - Encounter for other general examination Assessment and Plan: Pt is a 59-year-old male with a PMH significant for?GERD, polysubstance use disorder, anxiety, depression, and bipolar disorder who is admitted to psychiatry unit for increasing depression with SI with plan to cut himself. Pt reports has been having SI for many years, though worsening recently, and has been hearing voices and dreams telling him to kill himself. Medical consult for admission H&P. Mood disorder Plan as per psychiatry GERD Complaining of epigastric and throat burning after eating and taking meds Omeprazole 40mg daily x14 days Pt otherwise has no acute medical complaints or known chronic medical conditions. Will sign off for now. Thank you for allowing us to participate in the care of this pt. Please re-consult if any acute issue or need arises. Plan 08/30: start prolixin 2.5 BID with PRNs for AH. start zoloft 50 daily for depression. supportive care for cocaine and opioid withdrawal. low scores on CIWA overnight and reportedly hasn't drunk in 4 days, so DC CIWA protocol as not necessary. 08/31: mood improving, AH decreasing. c/o VERGARA. start ibuprofen PRN. low B12 - start supplementation. 09/01: nightmares, poor sleep, dry mouth. DC prolixin, start haldol. add prazosin at HS. 09/02: c/o worsened sleep, etiology unclear. possible akathisia. DC haldol and start trial of zyprexa 10 QHS. increase prazosin to 2 mg QHS. AH continue to improve. otherwise continue current mgmt. 09/03: Patient notes that his mood is not so good. he reports mild anxiety and severe depression. He is unable to get a good or restful sleep. He reports CAH to kill himself; the voices are usually present at night. The voices are not the reason for his sleep disturbance as he was able to sleep with them. He constantly thinks about his current mental health status and believes there is no way to get relief. He denies HI/VH. Will increase Zyprexa to 15 mg at bedtime and sertraline to 75 mg daily. Will continue to monitor. 09/04: c/o insomnia, xerostomia. decrease zyprexa back to 10 mg to reduce xerostomia. increase prazosin to 3 mg QHS for sleep. mood and AH improved. otherwise continue current mgmt. Reason for continued inpatient stay Substantial Risk for: inability to function and rapid decompensation Time Spent With Patient Time: Total time managing care of this patient today __25__ minutes.
[2024-09-04 21:15] VITALS: BP 125/69; PULSE 103; RESP 14; TEMP 36.8; O2SAT 99
[2024-09-05 07:30] VITALS: BP 106/54; PULSE 84; RESP 14; TEMP 36.9; O2SAT 97
[2024-09-05] MEDS: Magnesium Hydrox/Alum Hydrox 30 ML ORAL.SUSP PO (09:15)
--- NOTE | 2024-09-05 11:12 | HO.PSYCHPN ---
Subjective Subjective Date of Service: 09/05/24 Reason For Visit: Mental Health Crisis Interim History: feeling much improved in sleep, mood AH. planning for sunday discharge. per staff, flat. +AH, but attenuated. no CAH. relaxed eves, feeling improved. slept 8 hours. Mental Status Exam Mental Status Exam Narrative: adequately dressed and groomed. cooperative. no PMA/PMR. speech nml rate, amount, loudness, tone, latency. thoughts linear, logical. affect flexible, normo-intense, non-labile. mood improved. AH lessening. no CAH. no SI/HI/VH expressed. Diagnostics Vital Signs (24Hr): Vital Signs - 24 hr 09/04/24 21:15 09/05/24 07:30 Temperature 98.3 F 98.4 F Pulse Rate 103 H 84 Respiratory Rate 14 14 Blood Pressure 125/69 106/54 L Pulse Oximetry 99 97 Oxygen Delivery Method Room Air Room Air BMI result Body Mass Index 28.0 Labs 08/30/24 07:20 08/29/24 18:07 Medications Medications Current Medications Acetaminophen (Acetaminophen 325 Mg Tablet) 650 mg PO Q6H PRN PRN Reason: Headache/Pain, Scale 1-10 Last Admin: 08/31/24 20:37 Dose: 650 mg Al Hydroxide/Mg Hydroxide (Magnesium Hydrox/Alum Hydrox 30 Ml Oral.Susp) 30 ml PO Q6H PRN PRN Reason: Heartburn/Nausea Last Admin: 09/05/24 09:15 Dose: 30 ml Cyanocobalamin (Cyanocobalamin (Vitamin B-12) 1,000 Mcg Tablet) 1,000 mcg PO DAILY [facility] Last Admin: 09/05/24 08:41 Dose: 1,000 mcg Folic Acid (Folic Acid 1 Mg Tablet) 1 mg PO DAILY [facility] Last Admin: 09/05/24 08:41 Dose: 1 mg Ibuprofen (Ibuprofen 600 Mg Tablet) 600 mg PO Q6H PRN PRN Reason: pain (pain scale 1-10) Magnesium Hydroxide (Milk Of Magnesia 30 Ml Oral.Susp) 30 ml PO DAILY PRN PRN Reason: Constipation Nicotine Polacrilex (Nicotine Polacrilex 2 Mg Gum) 4 mg BUCCAL Q2H PRN PRN Reason: Nicotine Cravings Olanzapine (Olanzapine 10 Mg Tablet) 10 mg PO BEDTIME [facility] Last Admin: 09/04/24 21:24 Dose: 10 mg Omeprazole (Omeprazole 40 Mg Capsule.) 40 mg PO DAILY@0630 [facility] Stop: 09/12/24 06:31 Last Admin: 09/05/24 06:17 Dose: 40 mg Prazosin HCl (Prazosin Hcl 1 Mg Capsule) 3 mg PO BEDTIME [facility]; Protocol Last Admin: 09/04/24 21:24 Dose: 3 mg Sertraline HCl (Sertraline Hcl 25 Mg Tablet) 75 mg PO DAILY [facility] Last Admin: 09/05/24 08:41 Dose: 75 mg Thiamine HCl (Thiamine Hcl 100 Mg Tablet) 100 mg PO DAILY [facility] Last Admin: 09/05/24 08:41 Dose: 100 mg Trazodone HCl (Trazodone Hcl 50 Mg Tablet) 50 mg PO BEDTIME MRX1 PRN PRN Reason: Insomnia Last Admin: 09/04/24 21:23 Dose: 50 mg Allergies Allergies Allergy/AdvReac Type Severity Reaction Status Date / Time No Known Allergies Allergy Verified 07/08/20 12:32 Assessment & Plan Assessment & Plan (1) Auditory hallucinations: Status: Acute Code(s): R44.0 - Auditory hallucinations (2) Depressive disorder: Status: Acute Code(s): F32.A - Depression, unspecified (3) Medical clearance for psychiatric admission: Status: Acute Code(s): Z00.8 - Encounter for other general examination Assessment and Plan: Pt is a 59-year-old male with a PMH significant for?GERD, polysubstance use disorder, anxiety, depression, and bipolar disorder who is admitted to psychiatry unit for increasing depression with SI with plan to cut himself. Pt reports has been having SI for many years, though worsening recently, and has been hearing voices and dreams telling him to kill himself. Medical consult for admission H&P. Mood disorder Plan as per psychiatry GERD Complaining of epigastric and throat burning after eating and taking meds Omeprazole 40mg daily x14 days Pt otherwise has no acute medical complaints or known chronic medical conditions. Will sign off for now. Thank you for allowing us to participate in the care of this pt. Please re-consult if any acute issue or need arises. Plan 08/30: start prolixin 2.5 BID with PRNs for AH. start zoloft 50 daily for depression. supportive care for cocaine and opioid withdrawal. low scores on CIWA overnight and reportedly hasn't drunk in 4 days, so DC CIWA protocol as not necessary. 08/31: mood improving, AH decreasing. c/o VERGARA. start ibuprofen PRN. low B12 - start supplementation. 09/01: nightmares, poor sleep, dry mouth. DC prolixin, start haldol. add prazosin at HS. 09/02: c/o worsened sleep, etiology unclear. possible akathisia. DC haldol and start trial of zyprexa 10 QHS. increase prazosin to 2 mg QHS. AH continue to improve. otherwise continue current mgmt. 09/03: Patient notes that his mood is not so good. he reports mild anxiety and severe depression. He is unable to get a good or restful sleep. He reports CAH to kill himself; the voices are usually present at night. The voices are not the reason for his sleep disturbance as he was able to sleep with them. He constantly thinks about his current mental health status and believes there is no way to get relief. He denies HI/VH. Will increase Zyprexa to 15 mg at bedtime and sertraline to 75 mg daily. Will continue to monitor. 09/04: c/o insomnia, xerostomia. decrease zyprexa back to 10 mg to reduce xerostomia. increase prazosin to 3 mg QHS for sleep. mood and AH improved. otherwise continue current mgmt. 09/05: sleeping well, mood improved, AH improved (and no CAH). continue current mgmt. tentatively planning for DC next sunday. Reason for continued inpatient stay Substantial Risk for: inability to function and rapid decompensation Time Spent With Patient Time: Total time managing care of this patient today __25__ minutes.
[2024-09-05 20:55] VITALS: BP 120/72; PULSE 96; RESP 16; TEMP 36.9; O2SAT 100
[2024-09-06 08:00] VITALS: BP 102/53; PULSE 83; RESP 16; TEMP 36.5; O2SAT 100
[2024-09-06 21:00] VITALS: BP 109/58; PULSE 83; RESP 16; TEMP 37.1; O2SAT 98
--- NOTE | 2024-09-06 22:25 | P.PNPSI_ITS ---
Subjective Subjective Date of Service: 09/06/24 Reason For Visit: Mental Health Crisis Subjective Notes: Conditional Voluntary Healthcare Proxy: No Guardianship: No Medical Problems Affecting Mental Status: No Interim History: Medical record and nursing notes reviewed; case discussed during rounds with team/nursing staff, and met with patient for supportive therapy/psychoeducation, as well as medication management. Meet with patient with the presence machine worker. Patient reports sleep and appetite has been good. Mood is improving. Reports heartburn which make him refused to take total of 75 sertraline this morning. Explained side effects possibility from sertraline. Hope it gone away after wanted to weeks. If not we will switching to another antidepressants that does not have GI issues. Reports no hallucinations, denies other safety concerns. Isolated in bed prior to lunch, but more social shower after lunch. Medication Compliance: Yes (Take only 25/75 mg of sertraline due to heartburn issues. But he was medication compliant yesterday) Side effects from medications: Yes (Heartburn/GI issues) Attending Groups: Yes Review of Systems Acute medical concerns: No Medical Review of Systems: unchanged Review of Systems Review of Systems Negative except for that which is stated in the HPI. Reports heartburn. Mental Status Exam Mental Status Exam Narrative: adequately dressed and groomed. cooperative. Speech nml rate, amount, loudness, tone, latency. thoughts linear, logical. affect flexible, normo-intense, non- labile. mood improving. Anxiety 4/10 with mild depression. Continued to improve in hallucinations. no CAH. no SI/HI/VH. Diagnostics Vital Signs (24Hr): Vital Signs - 24 hr 09/06/24 08:00 09/06/24 21:00 Temperature 97.7 F 98.7 F Pulse Rate 83 83 Respiratory Rate 16 16 Blood Pressure 102/53 L 109/58 L Pulse Oximetry 100 98 Oxygen Delivery Method Room Air Room Air BMI result Body Mass Index 28.0 Labs 08/30/24 07:20 08/29/24 18:07 Medications Medications Current Medications Acetaminophen (Acetaminophen 325 Mg Tablet) 650 mg PO Q6H PRN PRN Reason: Headache/Pain, Scale 1-10 Last Admin: 08/31/24 20:37 Dose: 650 mg Al Hydroxide/Mg Hydroxide (Magnesium Hydrox/Alum Hydrox 30 Ml Oral.Susp) 30 ml PO Q6H PRN PRN Reason: Heartburn/Nausea Last Admin: 09/05/24 09:15 Dose: 30 ml Cyanocobalamin (Cyanocobalamin (Vitamin B-12) 1,000 Mcg Tablet) 1,000 mcg PO DAILY [facility] Last Admin: 09/06/24 08:52 Dose: 1,000 mcg Folic Acid (Folic Acid 1 Mg Tablet) 1 mg PO DAILY [facility] Last Admin: 09/06/24 08:52 Dose: 1 mg Ibuprofen (Ibuprofen 600 Mg Tablet) 600 mg PO Q6H PRN PRN Reason: pain (pain scale 1-10) Magnesium Hydroxide (Milk Of Magnesia 30 Ml Oral.Susp) 30 ml PO DAILY PRN PRN Reason: Constipation Nicotine Polacrilex (Nicotine Polacrilex 2 Mg Gum) 4 mg BUCCAL Q2H PRN PRN Reason: Nicotine Cravings Olanzapine (Olanzapine 10 Mg Tablet) 10 mg PO BEDTIME [facility] Last Admin: 09/06/24 21:10 Dose: 10 mg Omeprazole (Omeprazole 40 Mg Capsule.Dr) 40 mg PO DAILY@0630 [facility] Stop: 09/12/24 06:31 Last Admin: 09/06/24 06:20 Dose: 40 mg Ondansetron HCl (Ondansetron Odt 4 Mg Tab.Rapdis) 4 mg TRANSLINGU Q8H PRN PRN Reason: Nausea and Vomiting Prazosin HCl (Prazosin Hcl 1 Mg Capsule) 3 mg PO BEDTIME [facility]; Protocol Last Admin: 09/06/24 21:09 Dose: 3 mg Sertraline HCl (Sertraline Hcl 25 Mg Tablet) 75 mg PO DAILY [facility] Last Admin: 09/06/24 08:53 Dose: 25 mg Thiamine HCl (Thiamine Hcl 100 Mg Tablet) 100 mg PO DAILY [facility] Last Admin: 09/06/24 08:52 Dose: 100 mg Trazodone HCl (Trazodone Hcl 50 Mg Tablet) 50 mg PO BEDTIME MRX1 PRN PRN Reason: Insomnia Last Admin: 09/06/24 22:21 Dose: 50 mg Allergies Allergies Allergy/AdvReac Type Severity Reaction Status Date / Time No Known Allergies Allergy Verified 07/08/20 12:32 Assessment & Plan Assessment & Plan (1) Auditory hallucinations: Status: Acute Code(s): R44.0 - Auditory hallucinations (2) Depressive disorder: Status: Acute Code(s): F32.A - Depression, unspecified (3) Medical clearance for psychiatric admission: Status: Acute Code(s): Z00.8 - Encounter for other general examination Assessment and Plan: Pt is a 59-year-old male with a PMH significant for?GERD, polysubstance use disorder, anxiety, depression, and bipolar disorder who is admitted to [facility] psychiatry unit for increasing depression with SI with plan to cut himself. Pt reports has been having SI for many years, though worsening recently, and has been hearing voices and dreams telling him to kill himself. Medical consult for admission H&P. Mood disorder Plan as per psychiatry GERD Complaining of epigastric and throat burning after eating and taking meds Omeprazole 40mg daily x14 days Pt otherwise has no acute medical complaints or known chronic medical conditions. Will sign off for now. Thank you for allowing us to participate in the care of this pt. Please re-consult if any acute issue or need arises. Plan 08/30: start prolixin 2.5 BID with PRNs for AH. start zoloft 50 daily for depression. supportive care for cocaine and opioid withdrawal. low scores on CIWA overnight and reportedly hasn't drunk in 4 days, so DC CIWA protocol as not necessary. 08/31: mood improving, AH decreasing. c/o VERGARA. start ibuprofen PRN. low B12 - start supplementation. 09/01: nightmares, poor sleep, dry mouth. DC prolixin, start haldol. add prazosin at HS. 09/02: c/o worsened sleep, etiology unclear. possible akathisia. DC haldol and start trial of zyprexa 10 QHS. increase prazosin to 2 mg QHS. AH continue to improve. otherwise continue current mgmt. 09/03: Patient notes that his mood is not so good. he reports mild anxiety and severe depression. He is unable to get a good or restful sleep. He reports CAH to kill himself; the voices are usually present at night. The voices are not the reason for his sleep disturbance as he was able to sleep with them. He constantly thinks about his current mental health status and believes there is no way to get relief. He denies HI/VH. Will increase Zyprexa to 15 mg at bedtime and sertraline to 75 mg daily. Will continue to monitor. 09/04: c/o insomnia, xerostomia. decrease zyprexa back to 10 mg to reduce xerostomia. increase prazosin to 3 mg QHS for sleep. mood and AH improved. otherwise continue current mgmt. 09/05: sleeping well, mood improved, AH improved (and no CAH). continue current mgmt. tentatively planning for DC next sunday. 09/06/24: Sleep and appetite are good. Continue to improve in mood in terms of anxiety and depression. Continued to improve in psychosis symptoms. No safety concerns. No voices or hallucinations, educate possibility GI issuesas side effect from sertraline. Encourage to take it with food. If nauseous can take Zofran prior to taking medication. It could be decrease after wanted to weeks. If not we need to switch him into another none GI irritation antidepressant. Patient educated on: diagnosis, medication risk/benefits and therapeutic strategies Informed Consent: understands Reason for continued inpatient stay Substantial Risk for: med/psych decompensation Time Spent With Patient Time: Total time managing care of this patient today ____ minutes.
[2024-09-07 07:57] VITALS: BP 115/62; PULSE 56; RESP 14; TEMP 36.7; O2SAT 100
[2024-09-07] MEDS: Magnesium Hydrox/Alum Hydrox 30 ML ORAL.SUSP PO (08:34)
--- NOTE | 2024-09-07 13:07 | P.PNPSI_ITS ---
Subjective Subjective Date of Service: 09/07/24 Reason For Visit: Mental Health Crisis Subjective Notes: Conditional Voluntary Healthcare Proxy: No Guardianship: No Medical Problems Affecting Mental Status: No Interim History: Medical record and nursing notes reviewed; case discussed during rounds with team/nursing staff, and met with patient for supportive therapy/psychoeducation, as well as medication management. Meet patient with the presence of information engineer in his room: Patient slept 7 hours with 2 doses of trazodone. Was medication compliant, denies side effects. Denies safety concerns. No hallucinations. Mostly in bed in the morning. Patient agrees with the trazodone 100 scheduled at bedtime. Medication Compliance: Yes Side effects from medications: No Attending Groups: Intermittent Review of Systems Acute medical concerns: No Medical Review of Systems: unchanged Review of Systems Review of Systems Negative except for that which is stated in the HPI. Reports heartburn. Mental Status Exam Mental Status Exam Narrative: adequately dressed and groomed. cooperative. Speech nml rate, amount, loudness, tone, latency. thoughts linear, logical. affect flexible, normo-intense, non- labile. mood improving. Anxiety 4/10 with mild depression. Continued to improve in hallucinations. no CAH. no SI/HI/VH. Diagnostics Vital Signs (24Hr): Vital Signs - 24 hr 09/06/24 21:00 09/07/24 07:57 Temperature 98.7 F 98.0 F Pulse Rate 83 56 Respiratory Rate 16 14 Blood Pressure 109/58 L 115/62 Pulse Oximetry 98 100 Oxygen Delivery Method Room Air Room Air BMI result Body Mass Index 28.0 Labs 08/30/24 07:20 08/29/24 18:07 Medications Medications Current Medications Acetaminophen (Acetaminophen 325 Mg Tablet) 650 mg PO Q6H PRN PRN Reason: Headache/Pain, Scale 1-10 Last Admin: 08/31/24 20:37 Dose: 650 mg Al Hydroxide/Mg Hydroxide (Magnesium Hydrox/Alum Hydrox 30 Ml Oral.Susp) 30 ml PO Q6H PRN PRN Reason: Heartburn/Nausea Last Admin: 09/07/24 08:34 Dose: 30 ml Cyanocobalamin (Cyanocobalamin (Vitamin B-12) 1,000 Mcg Tablet) 1,000 mcg PO DAILY [facility] Last Admin: 09/07/24 08:36 Dose: 1,000 mcg Folic Acid (Folic Acid 1 Mg Tablet) 1 mg PO DAILY [facility] Last Admin: 09/07/24 08:36 Dose: 1 mg Ibuprofen (Ibuprofen 600 Mg Tablet) 600 mg PO Q6H PRN PRN Reason: pain (pain scale 1-10) Magnesium Hydroxide (Milk Of Magnesia 30 Ml Oral.Susp) 30 ml PO DAILY PRN PRN Reason: Constipation Nicotine Polacrilex (Nicotine Polacrilex 2 Mg Gum) 4 mg BUCCAL Q2H PRN PRN Reason: Nicotine Cravings Olanzapine (Olanzapine 10 Mg Tablet) 10 mg PO BEDTIME [facility] Last Admin: 09/06/24 21:10 Dose: 10 mg Omeprazole (Omeprazole 40 Mg Capsule.Dr) 40 mg PO DAILY@0630 [facility] Stop: 09/12/24 06:31 Last Admin: 09/07/24 06:35 Dose: 40 mg Ondansetron HCl (Ondansetron Odt 4 Mg Tab.Rapdis) 4 mg TRANSLINGU Q8H PRN PRN Reason: Nausea and Vomiting Prazosin HCl (Prazosin Hcl 1 Mg Capsule) 3 mg PO BEDTIME [facility]; Protocol Last Admin: 09/06/24 21:09 Dose: 3 mg Sertraline HCl (Sertraline Hcl 25 Mg Tablet) 75 mg PO DAILY [facility] Last Admin: 09/07/24 08:36 Dose: 75 mg Thiamine HCl (Thiamine Hcl 100 Mg Tablet) 100 mg PO DAILY [facility] Last Admin: 09/07/24 08:36 Dose: 100 mg Trazodone HCl (Trazodone Hcl 100 Mg Tablet) 100 mg PO BEDTIME [facility] Allergies Allergies Allergy/AdvReac Type Severity Reaction Status Date / Time No Known Allergies Allergy Verified 07/08/20 12:32 Assessment & Plan Assessment & Plan (1) Auditory hallucinations: Status: Acute Code(s): R44.0 - Auditory hallucinations (2) Depressive disorder: Status: Acute Code(s): F32.A - Depression, unspecified (3) Medical clearance for psychiatric admission: Status: Acute Code(s): Z00.8 - Encounter for other general examination Assessment and Plan: Pt is a 59-year-old male with a PMH significant for?GERD, polysubstance use disorder, anxiety, depression, and bipolar disorder who is admitted to psychiatry unit for increasing depression with SI with plan to cut himself. Pt reports has been having SI for many years, though worsening recently, and has been hearing voices and dreams telling him to kill himself. Medical consult for admission H&P. Mood disorder Plan as per psychiatry GERD Complaining of epigastric and throat burning after eating and taking meds Omeprazole 40mg daily x14 days Pt otherwise has no acute medical complaints or known chronic medical conditions. Will sign off for now. Thank you for allowing us to participate in the care of this pt. Please re-consult if any acute issue or need arises. Plan 08/30: start prolixin 2.5 BID with PRNs for AH. start zoloft 50 daily for depression. supportive care for cocaine and opioid withdrawal. low scores on CIWA overnight and reportedly hasn't drunk in 4 days, so DC CIWA protocol as not necessary. 08/31: mood improving, AH decreasing. c/o VERGARA. start ibuprofen PRN. low B12 - start supplementation. 09/01: nightmares, poor sleep, dry mouth. DC prolixin, start haldol. add prazosin at HS. 09/02: c/o worsened sleep, etiology unclear. possible akathisia. DC haldol and start trial of zyprexa 10 QHS. increase prazosin to 2 mg QHS. AH continue to improve. otherwise continue current mgmt. 09/03: Patient notes that his mood is not so good. he reports mild anxiety and severe depression. He is unable to get a good or restful sleep. He reports CAH to kill himself; the voices are usually present at night. The voices are not the reason for his sleep disturbance as he was able to sleep with them. He constantly thinks about his current mental health status and believes there is no way to get relief. He denies HI/VH. Will increase Zyprexa to 15 mg at bedtime and sertraline to 75 mg daily. Will continue to monitor. 09/04: c/o insomnia, xerostomia. decrease zyprexa back to 10 mg to reduce xerostomia. increase prazosin to 3 mg QHS for sleep. mood and AH improved. otherwise continue current mgmt. 09/05: sleeping well, mood improved, AH improved (and no CAH). continue current mgmt. tentatively planning for DC next sunday. 09/06/24: Sleep and appetite are good. Continue to improve in mood in terms of anxiety and depression. Continued to improve in psychosis symptoms. No safety concerns. No voices or hallucinations, educate possibility GI issuesas side effect from sertraline. Encourage to take it with food. If nauseous can take Zofran prior to taking medication. It could be decrease after wanted to weeks. If not we need to switch him into another none GI irritation antidepressant. 09/07/24: Continue to improve, medication compliant. No issues with appetite. Pleasant and cooperative. No safety concerns. Scheduled trazodone 100 at bedtime for insomnia. Receptive to the plan. Possibility being discharged on Sunday. Patient educated on: medication risk/benefits and therapeutic strategies Informed Consent: understands Reason for continued inpatient stay Substantial Risk for: med/psych decompensation Time Spent With Patient Time: Total time managing care of this patient today ____ minutes.
[2024-09-07 19:58] VITALS: BP 116/57; PULSE 78; TEMP 37.3; O2SAT 100
[2024-09-08] MEDS: Magnesium Hydrox/Alum Hydrox 30 ML ORAL.SUSP PO (08:24)
[2024-09-08 10:14] VITALS: BP 106/53; PULSE 59; RESP 16; TEMP 36.8; O2SAT 99
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
[2024-09-08 19:30] VITALS: BP 119/60; PULSE 82; RESP 16; TEMP 36.5; O2SAT 99
[2024-09-08 20:58] VITALS: BP 117/56
[2024-09-08 21:05] VITALS: BP 135/81; PULSE 95; RESP 20; O2SAT 95
[2024-09-09 07:53] VITALS: BP 92/54; PULSE 69; RESP 16; TEMP 36.7; O2SAT 100
[2024-09-09] MEDS: Magnesium Hydrox/Alum Hydrox 30 ML ORAL.SUSP PO (08:36)
== END 2024-09-09 10:27 | disposition home or self-care (01) | DRG 754 ==
PROVIDERS: Admitting Provider Psychiatry & Neurology Psychiatry; Visit Provider Psychiatry & Neurology Psychiatry
DX: F32.A Depression, unspecified (principal); R45.851 Suicidal ideations; F14.10 Cocaine abuse, uncomplicated; F19.90 Other psychoactive substance use, unspecified, uncomplicated; K21.9 Gastro-esophageal reflux disease without esophagitis; Z79.899 Other long term (current) drug therapy
CPT/HCPCS: 36415; 80048; 80061; 80076; 82607; 82746; 83036; 84439; 84443; 85025

== ENCOUNTER → 2024-08-29 17:07 | Outpatient (BNV) | payer OTHER, SELFPAY | PROVIDERS: Admitting Provider Psychiatry & Neurology Psychiatry; Visit Provider Psychiatry & Neurology Psychiatry | DX: F32.3 Major depressive disorder, single episode, severe with psychotic features (principal) | CPT/HCPCS: 99231; 99232; 99233 ==

== ENCOUNTER → 2024-08-29 17:07 | Outpatient (BNV) | payer MEDICAID, SELFPAY | PROVIDERS: Admitting Provider Psychiatry & Neurology Psychiatry; Visit Provider Student in an Organized Health Care Education/Training Program | DX: Z00.8 Encounter for other general examination (principal) | CPT/HCPCS: 99222 ==

== ENCOUNTER 2024-10-08 18:22 | Inpatient (IN) | payer OTHER, SELFPAY ==
--- OUTSIDE RECORDS SUMMARY | 2024-10-08 18:25 | XMS_ITS | Clinical Summary ---
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 Name Role Phone Unavailable Primary Care Provider Unavailabl e Encounters Date Type Department Care Team Description 09/16/2024 Population Health Risk Score [facility] (C3) Department [address] [address] [place] [address] Provider, Population Health Generic from Last 3 Months Social History Tobacco Use Types Packs/Day Years Used Date Smoking Tobacco: Never Assessed Sex and Gender Information Value Date Recorded Sex Assigned at Not on file Legal Sex Male 9:18 PM EDT Gender Identity Not on file Sexual Orientation Not on file Plan of Treatment Health Maintenance Due Date Last Done Comments CT Colonography 1965 Colonoscopy 1965 Colorectal Cancer Screening 1965 Depression Screening 1965 FIT DNA/Cologuard 1965 FIT 1965 FOBT 1965 HIV Screening 1965 Lipid Panel 1965 SDOH Screening 1965 Sigmoidoscopy 1965 Disability Screening 1965 Alcohol/Substance Use Screening 1977 Tobacco Screening 1977 Hepatitis C Screening 08/24/1983 DTaP/Tdap/Td Vaccines (1 - Tdap) 1984 Hepatitis B Vaccines (1 of 3 - 19+ 3-dose series) 1984 Pneumococcal Vaccine: 50+ Ye ars (1 of 1 - PCV) 08/24/2015 Zoster Vaccines (1 of 2) 08/24/2015 COVID-19 Vaccine ( - 2023-2 5 season) 2023 Influenza Vaccine (#1) 2024 RSV Patients and Pa tients Aged 60 years or older (1 - 1-dose 75+ series) 2040 HIB Vaccines Aged Out No longer eligi ble based on patient's age to complete this topic HPV Vaccines Aged Out No longer eligi ble based on patient's age to complete this topic Hepatitis A Vaccines Aged Out No long er eligible based on patient's age to complete this topic IPV Vaccines Aged Out No longer eligi ble based on patient's age to complete this topic Meningococcal B Vaccine Aged Out No l onger eligible based on patient's age to complete this topic Meningococcal Vaccine Aged Out No didi danyell eligible based on patient's age to complete this topic RSV under 20 months Aged Out No longe r eligible based on patient's age to complete this topic Rotavirus Vaccines Aged Out No longer eligible based on patient's age to complete this topic
--- OUTSIDE RECORDS SUMMARY | 2024-10-08 18:26 | XMS_ITS | Clinical Summary ---
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 acromioclavicular joint. Code 97342 -------- FINAL REPORT -------- Dictated By: Patric Helm Dictated Date: 09/17/2024 11:01 ET Assigned Physician: Patric Helm Reviewed and Electronically Signed By: Patric Helm Signed Date: 09/17/2024 11:03 ET Workstation ID: [id number] Transcribed By: Self Edit Transcribed Date: 09/17/2024 11:01 ET us Brooks Chambers MD IMG XR PROCEDURES Final Result * ECG-Annotated (09/01/2024) us Provider Onbase ECG ORDERABLES Final Result * ECG 12 lead (08/29/2024 3:23 PM EDT) Ventricular Rate ECG 61 BPM GEMUSE Atrial Rate 61 BPM GEMUSE P-R Interval 120 ms GEMUSE QRS Duration 98 ms GEMUSE Q-T Interval 462 ms GEMUSE QTc 465 ms GEMUSE P Wave Rupert -24 degrees GEMUSE R Rupert 7 degrees GEMUSE T Rupert 23 degrees GEMUSE ECG Interpretation Normal sinus rhythm Normal ECG When compared with ECG of 02-APR-2023 10:25, Premature ventricular complexes are no longer Present Vent. 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
--- OUTSIDE RECORDS SUMMARY | 2024-10-08 18:26 | XMS_ITS | Patient Health Record ---
Author Organization [facility] Address [address] [place], [place] [id number] Care Team Providers Care Wire Lather Name Role Phone NO, PCP Primary Care Provider Bon Iglesias Unavailable [phone] Reason For Referral No Information Plan Of Treatment No Information Insurance Providers Payer Name Payer Address Payer Phone Subscriber Number Group Number Insured Name Patient Relationship to Insured Coverage Start Date Coverage End Date [place] Medicaid Standard [address] [place] [address] [id number] Dmitriy Hillman Self - patient is the insured 2 2
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
[2024-10-08 18:33] VITALS: BMI 28.3
[2024-10-08 18:34] VITALS: BP 123/73; PULSE 72; TEMP 36.1; O2SAT 98
--- NOTE | 2024-10-08 19:07 | PC.ADMIT ---
Dmitriy was admitted to on a CV for treatment of Command AH & depressive disorder from [facility]. He was brought to ED after seeking help outside the [place] [employer] reporting voices telling him to kill himself. He is A&O x 4, calm and cooperative with the admission process. He reports having racing thoughts and continued CAH. He denies SI/HI/VH, endorses CAH but does not want to act on what the voices command. Dmitriy is able to contract for safety here on the unit. He endorses a recent increase in stress regarding finances & work. Dmitriy endorses having a big problem with alcohol in the past & he doesn?t want to return to that. He endorses occasional use of cocaine. His UTOX was positive for fentanyl & cocaine. Skin check is unremarkable with the exception of a few old healed scars.? He was oriented to the unit & placed on 15 min safety checks.
[2024-10-08 20:00] VITALS: BP 147/65; PULSE 81; RESP 16; TEMP 36.5; O2SAT 98
[2024-10-08 21:11] VITALS: BP 147/65
[2024-10-09 08:00] VITALS: BP 115/69; PULSE 76; RESP 18; TEMP 37.1; O2SAT 100
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
--- NOTE | 2024-10-09 09:43 | P.CONHOSP_ITS ---
History of Present Illness Data of Consult Service Date: 10/09/24 Primary Care Provider: Unknown Physician HPI Reason for consult: Medical H&P 59-year-old male with a past medical history of depressive disorder and polysubstance use, he presented to [facility] after being brought to the ED for command auditory hallucinations telling him to kill himself. He is admitted here for further care. Denies any past medical history, denies taking any home medications. Exam he reports feeling tired from medications that he received. Reports that he has not slept in a couple of days. Ate breakfast this morning. Denies any shortness of dizziness lightheadedness or any other concerning symptoms. Review of admission labs refill reveal mild anemia and decreased B12. He is on oral supplementation. Hemoglobin A1c and cholesterol levels WNL. Review of Systems Review of Systems: Denies any shortness of breath, chest pain, dizziness, lightheadedness, abdominal pain or discomfort, nausea vomiting or diarrhea PMFSH Medical History Perianal abscess Abdominal pain Screening and evaluation for vasectomy Physical exam Family History Mother Cancer Father Alzheimer disease Surgical History H/O hemorrhoidectomy Social History Household Members: None Household Members Other:: Lives with friends Housing: Apartment Do you presently have visiting nurse or other home services: No Alcohol intake: current Alcohol intake frequency: 3 or more drinks per day Patient Tobacco Use Status: Never used Tobacco Smoked in Last 30 Days: No e-Cigarette/Vaping Use: Never Used Second Hand Smoke Exposure: No Substance Use Type: Crack/Cocaine Currently Displaying Signs/Symptoms of Drug Intoxication Withdrawal: No Have you been hit, kicked, punched, or otherwise hurt by someone within the past year? If so, by whom?: No Do you feel safe in your current relationship?: No Current Relationship Is there a partner from a previous relationship who is making you feel unsafe now?: No Are you made to feel afraid or neglected: No Advance Directives: No Advance Directives Information Provided: No Do you have thoughts of harming others: None Do you have a plan to hurt others: No Plan Recently lost weight without trying: No Eating poorly because of decreased appetite: No Nutrition Risks: No Nutritional Risk Poor oral hygiene: No service: No Current occupational status: unemployed Sexual orientation: Straight/Heterosexual Meds Allergies Allergy/AdvReac Type Severity Reaction Status Date / Time No Known Allergies Allergy Verified 07/08/20 12:32 Active Medications: Current Medications Acetaminophen (Acetaminophen 325 Mg Tablet) 650 mg PO Q6H PRN PRN Reason: Headache/Pain, Scale 1-10 Al Hydroxide/Mg Hydroxide (Magnesium Hydrox/Alum Hydrox 30 Ml Oral.Susp) 30 ml PO Q6H PRN PRN Reason: Heartburn/Nausea Cyanocobalamin (Cyanocobalamin (Vitamin B-12) 1,000 Mcg Tablet) 1,000 mcg PO DAILY [facility] Last Admin: 10/09/24 08:29 Dose: 1,000 mcg Folic Acid (Folic Acid 1 Mg Tablet) 1 mg PO DAILY [facility] Last Admin: 10/09/24 08:29 Dose: 1 mg Hydroxyzine HCl (Hydroxyzine Hcl 25 Mg Tablet) 25 mg PO Q6H PRN PRN Reason: mild anxiety Magnesium Hydroxide (Milk Of Magnesia 30 Ml Oral.Susp) 30 ml PO DAILY PRN PRN Reason: Constipation Nicotine (Nicotine 21 Mg Patch.Td24) 21 mg TRANSDERMA DAILY PRN PRN Reason: nicotine craving Nicotine Polacrilex (Nicotine Polacrilex 2 Mg Gum) 2 mg BUCCAL Q2H PRN PRN Reason: Nicotine Cravings Olanzapine (Olanzapine 5 Mg Tablet) 5 mg PO BID PRN PRN Reason: agitation Olanzapine (Olanzapine 10 Mg Tablet) 10 mg PO BEDTIME [facility] Last Admin: 10/08/24 21:11 Dose: 10 mg Omeprazole (Omeprazole 40 Mg Capsule.Dr) 40 mg PO DAILY@0630 [facility] Last Admin: 10/09/24 06:30 Dose: 40 mg Prazosin HCl (Prazosin Hcl 1 Mg Capsule) 3 mg PO BEDTIME [facility]; Protocol Last Admin: 10/08/24 21:11 Dose: 3 mg Sertraline HCl (Sertraline Hcl 25 Mg Tablet) 75 mg PO DAILY [facility] Last Admin: 10/09/24 08:29 Dose: 75 mg Thiamine HCl (Thiamine Hcl 100 Mg Tablet) 100 mg PO DAILY [facility] Last Admin: 10/09/24 08:30 Dose: 100 mg Trazodone HCl (Trazodone Hcl 50 Mg Tablet) 150 mg PO BEDTIME [facility] Last Admin: 10/08/24 21:11 Dose: 150 mg Trazodone HCl (Trazodone Hcl 50 Mg Tablet) 50 mg PO BEDTIME PRN PRN Reason: Insomnia Physical Exam Vital Signs and Narrative: Vital Signs: Last Vital Signs Temp 98.8 F 10/09/24 08:00 Pulse 76 10/09/24 08:00 Resp 18 10/09/24 08:00 BP 115/69 10/09/24 08:00 Pulse Ox 100 10/09/24 08:00 O2 Del Method Room Air 10/09/24 08:00 BMI result Body Mass Index 28.3 CONST: Alert and oriented, in NAD. Well nourished HEENT: Normocephalic, atraumatic, MMM, Eyes clear, Neck supple RESP: Lungs clear, RRR even and regular HEART:,RRR, S1, S2. No edema GI:Abdomen Soft NT, ND. + BS times four :Deferred SKIN: Warm dry and intact, no visible lesions or rashes NEURO:CN II-XII Intact bilaterally, Sensation intact. Speech clear PSYCH: Normal affect Assessment and Plan (1) Auditory hallucinations: Status: Acute Plan 59-year-old male with no pertinent past medical history except depression brought in by [place] police command auditory hallucinations that told him to kill himself. He is admitted to inpatient psychiatric care for further treatment. Depressive disorder/auditory hallucinations Treatment plan per psychiatric team B12 deficiency anemia Continues on p.o. supplementation Will need follow up with primary care to evaluate need for monthly IM dosing
[2024-10-09 20:20] VITALS: BP 113/61; PULSE 80; RESP 16; TEMP 37.1; O2SAT 98
[2024-10-09 21:04] VITALS: BP 113/61
[2024-10-10 07:49] VITALS: BP 124/62; PULSE 69; RESP 18; TEMP 36.1; O2SAT 98
--- NOTE | 2024-10-10 12:41 | P.PNPSI_ITS ---
Subjective Subjective Date of Service: 10/10/24 Reason For Visit: f20.89 f14.20 Interim History: Seen with intake rn Thao; discussed with team; chart review feeling down and last night AH as falling asleep. bad dream of him doing what voices were telling him to do and in dream killed himself, then woke up in a panicked sweat... Regarding efficacy of medications patient clarified and said that auditory hallucinations did resolve on medications and only returned a few days before this admission -patient shared about some traumatic events and ongoing PTSD symptoms and anxiety -discussed risks/side-effect of antipshcotics (likely cause of dry mouth) -patient agreed to increased Zoloft and add clonidine (risks/side effects reviewed) Reviewed chart: tried Haldol considered Naltrexone and antabuse zyprexa 15mg too much hx of nightmares of him killing himself hx of trauma, memories of events; mom abandoned him Mental Status Exam Mental Status Exam Narrative: Pt is alert and oriented; behavior is cooperative, friendly and calm; patient is not in distress; dressed in hospital attire; unkempt; mood is described as down and affect congruent; eye contact appropriate; Speech is normal rate, volume and prosody and not pressured; psychomotor retardation present; thought process is organized and goal directed; Thought content is on stressors, trauma memories, tx; otherwise pertinent to relevant topics and without any delusional content, paranoid ideations or grandiosity; denies any SI/HI. Intermittent AH; Patients insight and judgment impaired but improving. Diagnostics Vital Signs (24Hr): Vital Signs - 24 hr 10/09/24 20:20 10/09/24 21:04 10/10/24 07:49 Temperature 98.7 F 96.9 F Pulse Rate 80 69 Respiratory Rate 16 18 Blood Pressure 113/61 113/61 124/62 Pulse Oximetry 98 98 Oxygen Delivery Method Room Air Room Air BMI result Body Mass Index 28.3 Medications Medications Current Medications Acetaminophen (Acetaminophen 325 Mg Tablet) 650 mg PO Q6H PRN PRN Reason: Headache/Pain, Scale 1-10 Al Hydroxide/Mg Hydroxide (Magnesium Hydrox/Alum Hydrox 30 Ml Oral.Susp) 30 ml PO Q6H PRN PRN Reason: Heartburn/Nausea Cyanocobalamin (Cyanocobalamin (Vitamin B-12) 1,000 Mcg Tablet) 1,000 mcg PO DAILY [facility] Last Admin: 10/10/24 08:46 Dose: 1,000 mcg Folic Acid (Folic Acid 1 Mg Tablet) 1 mg PO DAILY [facility] Last Admin: 10/10/24 08:46 Dose: 1 mg Hydroxyzine HCl (Hydroxyzine Hcl 25 Mg Tablet) 25 mg PO Q6H PRN PRN Reason: mild anxiety Magnesium Hydroxide (Milk Of Magnesia 30 Ml Oral.Susp) 30 ml PO DAILY PRN PRN Reason: Constipation Nicotine (Nicotine 21 Mg Patch.Td24) 21 mg TRANSDERMA DAILY PRN PRN Reason: nicotine craving Nicotine Polacrilex (Nicotine Polacrilex 2 Mg Gum) 2 mg BUCCAL Q2H PRN PRN Reason: Nicotine Cravings Olanzapine (Olanzapine 5 Mg Tablet) 5 mg PO BID PRN PRN Reason: agitation Olanzapine (Olanzapine 10 Mg Tablet) 10 mg PO BEDTIME [facility] Last Admin: 10/09/24 21:04 Dose: 10 mg Omeprazole (Omeprazole 40 Mg Capsule.Dr) 40 mg PO DAILY@0630 [facility] Last Admin: 10/10/24 06:11 Dose: 40 mg Prazosin HCl (Prazosin Hcl 1 Mg Capsule) 3 mg PO BEDTIME [facility]; Protocol Last Admin: 10/09/24 21:04 Dose: 3 mg Sertraline HCl (Sertraline Hcl 25 Mg Tablet) 75 mg PO DAILY [facility] Last Admin: 10/10/24 08:46 Dose: 75 mg Thiamine HCl (Thiamine Hcl 100 Mg Tablet) 100 mg PO DAILY [facility] Last Admin: 10/10/24 08:46 Dose: 100 mg Trazodone HCl (Trazodone Hcl 50 Mg Tablet) 150 mg PO BEDTIME [facility] Last Admin: 10/09/24 21:04 Dose: 150 mg Trazodone HCl (Trazodone Hcl 50 Mg Tablet) 50 mg PO BEDTIME PRN PRN Reason: Insomnia Allergies Allergies Allergy/AdvReac Type Severity Reaction Status Date / Time No Known Allergies Allergy Verified 07/08/20 12:32 Assessment & Plan Assessment & Plan (1) Schizoaffective disorder: Status: Acute Code(s): F25.9 - Schizoaffective disorder, unspecified (2) Alcohol use disorder: Status: Acute Code(s): F10.90 - Alcohol use, unspecified, uncomplicated (3) Cocaine use disorder: Status: Acute Code(s): F14.10 - Cocaine abuse, uncomplicated (4) Opioid use disorder: Status: Acute Code(s): F11.90 - Opioid use, unspecified, uncomplicated Plan Patient is a 59-year-old male with history of schizoaffective disorder, alcohol use disorder, opiate use disorder who was discharged from 4 weeks ago who presents again for depression and command auditory hallucinations to harm himself. Patient asks to keep interview short because he has not slept for 2 days and is very tired. Patient reports that he remained on his medications and felt that they were overall helpful. He says voices remain but he felt better anyway. He says for some unknown reason AH returned a few days ago; he says that this is the only reason he relapsed with alcohol (drinking for 2 days), fentanyl/cocaine. Patient says that initially he did have some suicidal thoughts but currently no longer; voices are telling him to harm himself but he does not want to. Patient does make mentioned that his job is stressful which he thinks is contributory but is vague on the details. He thinks he should remain on current medication regimen since it was helpful. Impression/clinical reasoning: Patient says that overall medications were helpful so will continue patient on Zyprexa 10 mg q.h.s., Zoloft 75 mg and prazosin 3 mg q.h.s.. Will likely inc rease some medication since it seems that some type of psychosocial stressors may have triggered return of symptoms. Hospital course: 10/10 feeling down and last night AH as falling asleep. bad dream of him doing what voices were telling him to do and in dream killed himself, then woke up in a panicked sweat... Regarding efficacy of medications patient clarified and said that auditory hallucinations did resolve on medications and only returned a few days before this admission -patient shared about some traumatic events and ongoing PTSD symptoms and anxiety -discussed risks/side-effect of antipshcotics (likely cause of dry mouth) -patient agreed to increased Zoloft and add clonidine (risks/side effects reviewed) Reviewed chart: tried Haldol considered Naltrexone and antabuse zyprexa 15mg too much hx of nightmares of him killing himself hx of trauma, memories of events; mom abandoned him Plan: CV Q 15 minute checks Continue Zyprexa 10 mg q.h.s. Increase to Zoloft 100 mg for anxiety, depression and PTSD symptoms Add clonidine p.r.n. Continue prazosin 3 mg q.h.s. Patient only drank for 2 days and not on withdrawal Refused labs, including hemoglobin A1c, lipid panel Patient educated on: diagnosis, medication risk/benefits, substance abuse and therapeutic strategies Informed Consent: understands Reason for continued inpatient stay Substantial Risk for: rapid decompensation Time Spent With Patient Time: Total time managing care of this patient today ____ minutes.
[2024-10-10 20:00] VITALS: BP 110/57; PULSE 72; TEMP 37.6; O2SAT 95
[2024-10-10 20:17] VITALS: BP 110/57
[2024-10-11 08:00] VITALS: BP 113/64; PULSE 80; RESP 18; TEMP 37.1; O2SAT 98
--- NOTE | 2024-10-11 09:20 | P.PNPSI_ITS ---
Subjective Subjective Date of Service: 10/11/24 Reason For Visit: f20.89 f14.20 Interim History: met with patient; discussed with team Patient says he is feeling a little better today, mood is little better and anxiety not as bad. No AH, no SI; appreciates medication changes and wants to continue with them Mental Status Exam Mental Status Exam Narrative: Pt is alert and oriented; behavior is isolative but cooperative, friendly on approach; calm in bed much of the day; patient is not in distress; dressed in hospital attire; unkempt; mood is described as better and affect congruent a little brighter; eye contact appropriate; Speech is normal rate, volume and prosody and not pressured; psychomotor retardation present; thought process is organized and goal directed; Thought content is on stressors, trauma memories, tx; otherwise pertinent to relevant topics and without any delusional content, paranoid ideations or grandiosity; denies any SI/HI. Denies AH; Patients insight and judgment improving. Diagnostics Vital Signs (24Hr): Vital Signs - 24 hr 10/10/24 20:00 10/10/24 20:17 10/11/24 08:00 Temperature 99.6 F 98.7 F Pulse Rate 72 80 Respiratory Rate 18 Blood Pressure 110/57 L 110/57 L 113/64 Pulse Oximetry 95 98 Oxygen Delivery Method Room Air Room Air BMI result Body Mass Index 28.3 Medications Medications Current Medications Acetaminophen (Acetaminophen 325 Mg Tablet) 650 mg PO Q6H PRN PRN Reason: Headache/Pain, Scale 1-10 Al Hydroxide/Mg Hydroxide (Magnesium Hydrox/Alum Hydrox 30 Ml Oral.Susp) 30 ml PO Q6H PRN PRN Reason: Heartburn/Nausea Clonidine HCl (Clonidine Hcl 0.1 Mg Tablet) 0.1 mg PO Q4H PRN; Protocol PRN Reason: moderate anxiety Cyanocobalamin (Cyanocobalamin (Vitamin B-12) 1,000 Mcg Tablet) 1,000 mcg PO DAILY [facility] Last Admin: 10/11/24 08:24 Dose: 1,000 mcg Folic Acid (Folic Acid 1 Mg Tablet) 1 mg PO DAILY [facility] Last Admin: 10/11/24 08:23 Dose: 1 mg Hydroxyzine HCl (Hydroxyzine Hcl 25 Mg Tablet) 25 mg PO Q6H PRN PRN Reason: mild anxiety Magnesium Hydroxide (Milk Of Magnesia 30 Ml Oral.Susp) 30 ml PO DAILY PRN PRN Reason: Constipation Nicotine (Nicotine 21 Mg Patch.Td24) 21 mg TRANSDERMA DAILY PRN PRN Reason: nicotine craving Nicotine Polacrilex (Nicotine Polacrilex 2 Mg Gum) 2 mg BUCCAL Q2H PRN PRN Reason: Nicotine Cravings Olanzapine (Olanzapine 5 Mg Tablet) 5 mg PO BID PRN PRN Reason: agitation Olanzapine (Olanzapine 10 Mg Tablet) 10 mg PO BEDTIME [facility] Last Admin: 10/10/24 20:17 Dose: 10 mg Omeprazole (Omeprazole 40 Mg Capsule.Dr) 40 mg PO DAILY@0630 [facility] Last Admin: 10/11/24 06:12 Dose: 40 mg Prazosin HCl (Prazosin Hcl 1 Mg Capsule) 3 mg PO BEDTIME [facility]; Protocol Last Admin: 10/10/24 20:17 Dose: 3 mg Sertraline HCl (Sertraline Hcl 100 Mg Tablet) 100 mg PO DAILY [facility] Last Admin: 10/11/24 08:24 Dose: 100 mg Thiamine HCl (Thiamine Hcl 100 Mg Tablet) 100 mg PO DAILY [facility] Last Admin: 10/11/24 08:24 Dose: 100 mg Trazodone HCl (Trazodone Hcl 50 Mg Tablet) 150 mg PO BEDTIME [facility] Last Admin: 10/10/24 20:17 Dose: 150 mg Trazodone HCl (Trazodone Hcl 50 Mg Tablet) 50 mg PO BEDTIME PRN PRN Reason: Insomnia Allergies Allergies Allergy/AdvReac Type Severity Reaction Status Date / Time No Known Allergies Allergy Verified 07/08/20 12:32 Assessment & Plan Assessment & Plan (1) Schizoaffective disorder: Status: Acute Code(s): F25.9 - Schizoaffective disorder, unspecified (2) Alcohol use disorder: Status: Acute Code(s): F10.90 - Alcohol use, unspecified, uncomplicated (3) Cocaine use disorder: Status: Acute Code(s): F14.10 - Cocaine abuse, uncomplicated (4) Opioid use disorder: Status: Acute Code(s): F11.90 - Opioid use, unspecified, uncomplicated Plan Patient is a 59-year-old male with history of schizoaffective disorder, alcohol use disorder, opiate use disorder who was discharged from 4 weeks ago who presents again for depression and command auditory hallucinations to harm himsel f. Patient asks to keep interview short because he has not slept for 2 days and is very tired. Patient reports that he remained on his medications and felt that they were overall helpful. He says voices remain but he felt better anyway. He says for some unknown reason AH returned a few days ago; he says that this is the only reason he relapsed with alcohol (drinking for 2 days), fentanyl/cocaine. Patient says that initially he did have some suicidal thoughts but currently no longer; voices are telling him to harm himself but he does not want to. Patient does make mentioned that his job is stressful which he thinks is contributory but is vague on the details. He thinks he should remain on current medication regimen since it was helpful. Impression/clinical reasoning: Patient says that overall medications were helpful so will continue patient on Zyprexa 10 mg q.h.s., Zoloft 75 mg and prazosin 3 mg q.h.s.. Will likely increase some medication since it seems that some type of psychosocial stressors may have triggered return of symptoms. Reviewed chart: tried Haldol considered Naltrexone and antabuse zyprexa 15mg too much hx of nightmares of him killing himself hx of trauma, memories of events; mom abandoned him Hospital course: 10/10 feeling down and last night AH as falling asleep. bad dream of him doing what voices were telling him to do and in dream killed himself, then woke up in a panicked sweat... Regarding efficacy of medications patient clarified and said that auditory hallucinations did resolve on medications and only returned a few days before this admission -patient shared about some traumatic events and ongoing PTSD symptoms and anxiety -discussed risks/side-effect of antipshcotics (likely cause of dry mouth) -patient agreed to increased Zoloft and add clonidine (risks/side effects reviewed) 10/11 Patient says he is feeling a little better today, mood is little better and anxiety not as bad. No AH, no SI; appreciates medication changes and wants to continue with them Plan: CV Q 15 minute checks Continue Zyprexa 10 mg q.h.s. Increase to Zoloft 100 mg for anxiety, depression and PTSD symptoms Add clonidine p.r.n. Continue prazosin 3 mg q.h.s. Patient only drank for 2 days and not on withdrawal Refused labs, including hemoglobin A1c, lipid panel Patient educated on: diagnosis and medication risk/benefits Informed Consent: understands Reason for continued inpatient stay Substantial Risk for: rapid decompensation Time Spent With Patient Time: Total time managing care of this patient today ____ minutes.
[2024-10-11 20:00] VITALS: BP 121/71; PULSE 93; TEMP 36.6; O2SAT 99
[2024-10-12 08:00] VITALS: BP 105/61; PULSE 97; RESP 18; TEMP 37.1; O2SAT 99
--- NOTE | 2024-10-12 10:29 | HO.PSYCHPN ---
Subjective Subjective Date of Service: 10/12/24 Reason For Visit: f20.89 f14.20 Interim History: met with patient; discussed with team starting to feel better, though says still depressed and anxious, some AH last night, but not today; out of room more Mental Status Exam Mental Status Exam Narrative: Pt is alert and oriented; behavior is isolative but cooperative, friendly on approach; calm in bed much of the day; patient is not in distress; dressed in hospital attire; unkempt; mood is described as better and affect congruent a little brighter; eye contact appropriate; Speech is normal rate, volume and prosody and not pressured; psychomotor retardation present; thought process is organized and goal directed; Thought content is on stressors, trauma memories, tx; otherwise pertinent to relevant topics and without any delusional content, paranoid ideations or grandiosity; denies any SI/HI. Intermittent AH; Patients insight and judgment improving. Diagnostics Vital Signs (24Hr): Vital Signs - 24 hr 10/11/24 20:00 10/12/24 08:00 Temperature 97.8 F 98.7 F Pulse Rate 93 97 Respiratory Rate 18 Blood Pressure 121/71 105/61 Pulse Oximetry 99 99 Oxygen Delivery Method Room Air Room Air BMI result Body Mass Index 28.3 Medications Medications Current Medications Acetaminophen (Acetaminophen 325 Mg Tablet) 650 mg PO Q6H PRN PRN Reason: Headache/Pain, Scale 1-10 Last Admin: 10/11/24 17:03 Dose: 650 mg Al Hydroxide/Mg Hydroxide (Magnesium Hydrox/Alum Hydrox 30 Ml Oral.Susp) 30 ml PO Q6H PRN PRN Reason: Heartburn/Nausea Clonidine HCl (Clonidine Hcl 0.1 Mg Tablet) 0.1 mg PO Q4H PRN; Protocol PRN Reason: moderate anxiety Cyanocobalamin (Cyanocobalamin (Vitamin B-12) 1,000 Mcg Tablet) 1,000 mcg PO DAILY [facility] Last Admin: 10/12/24 08:40 Dose: 1,000 mcg Folic Acid (Folic Acid 1 Mg Tablet) 1 mg PO DAILY [facility] Last Admin: 10/12/24 08:40 Dose: 1 mg Hydroxyzine HCl (Hydroxyzine Hcl 25 Mg Tablet) 25 mg PO Q6H PRN PRN Reason: mild anxiety Ibuprofen (Ibuprofen 600 Mg Tablet) 600 mg PO Q6H PRN PRN Reason: arthritic pain Last Admin: 10/11/24 19:08 Dose: 600 mg Magnesium Hydroxide (Milk Of Magnesia 30 Ml Oral.Susp) 30 ml PO DAILY PRN PRN Reason: Constipation Nicotine (Nicotine 21 Mg Patch.Td24) 21 mg TRANSDERMA DAILY PRN PRN Reason: nicotine craving Nicotine Polacrilex (Nicotine Polacrilex 2 Mg Gum) 2 mg BUCCAL Q2H PRN PRN Reason: Nicotine Cravings Olanzapine (Olanzapine 5 Mg Tablet) 5 mg PO BID PRN PRN Reason: agitation Olanzapine (Olanzapine 10 Mg Tablet) 10 mg PO BEDTIME [facility] Last Admin: 10/11/24 21:33 Dose: 10 mg Omeprazole (Omeprazole 40 Mg Capsule.Dr) 40 mg PO DAILY@0630 [facility] Last Admin: 10/12/24 06:46 Dose: 40 mg Prazosin HCl (Prazosin Hcl 1 Mg Capsule) 3 mg PO BEDTIME [facility]; Protocol Last Admin: 10/11/24 21:33 Dose: 3 mg Sertraline HCl (Sertraline Hcl 100 Mg Tablet) 100 mg PO DAILY [facility] Last Admin: 10/12/24 08:40 Dose: 100 mg Thiamine HCl (Thiamine Hcl 100 Mg Tablet) 100 mg PO DAILY [facility] Last Admin: 10/12/24 08:40 Dose: 100 mg Trazodone HCl (Trazodone Hcl 50 Mg Tablet) 150 mg PO BEDTIME [facility] Last Admin: 10/11/24 21:32 Dose: 150 mg Trazodone HCl (Trazodone Hcl 50 Mg Tablet) 50 mg PO BEDTIME PRN PRN Reason: Insomnia Allergies Allergies Allergy/AdvReac Type Severity Reaction Status Date / Time No Known Allergies Allergy Verified 07/08/20 12:32 Assessment & Plan Assessment & Plan (1) Schizoaffective disorder: Status: Acute Code(s): F25.9 - Schizoaffective disorder, unspecified (2) Alcohol use disorder: Status: Acute Code(s): F10.90 - Alcohol use, unspecified, uncomplicated (3) Cocaine use disorder: Status: Acute Code(s): F14.10 - Cocaine abuse, uncomplicated (4) Opioid use disorder: Status: Acute Code(s): F11.90 - Opioid use, unspecified, uncomplicated Plan Patient is a 59-year-old male with history of schizoaffective disorder, alcohol use disorder, opiate use disorder who was discharged from 4 weeks ago who presents again for depression and command auditory hallucinations to harm himself. Patient asks to keep interview short because he has not slept for 2 days and is very tired. Patient reports that he remained on his medications and felt that they were overall helpful. He says voices remain but he felt better anyway. He says for some unknown reason AH returned a few days ago; he says that this is the only reason he relapsed with alcohol (drinking for 2 days), fentanyl/cocaine. Patient says that initially he did have some suicidal thoughts but currently no longer; voices are telling him to harm himself but he does not want to. Patient does make mentioned that his job is stressful which he thinks is contributory but is vague on the details. He thinks he should remain on current medication regimen since it was helpful. Impression/clinical reasoning: Patient says that overall medications were helpful so will continue patient on Zyprexa 10 mg q.h.s., Zoloft 75 mg and prazosin 3 mg q.h.s.. Will likely increase some medication since it seems that some type of psychosocial stressors may have triggered return of symptoms. Reviewed chart: tried Haldol considered Naltrexone and antabuse zyprexa 15mg too much hx of nightmares of him killing himself hx of trauma, memories of events; mom abandoned him Hospital course: 10/10 feeling down and last night AH as falling asleep. bad dream of him doing what voices were telling him to do and in dream killed himself, then woke up in a panicked sweat... Regarding efficacy of medications patient clarified and said that auditory hallucinations did resolve on medications and only returned a few days before this admission -patient shared about some traumatic events and ongoing PTSD symptoms and anxiety -discussed risks/side-effect of antipshcotics (likely cause of dry mouth) -patient agreed to increased Zoloft and add clonidine (risks/side effects reviewed) 10/11 Patient says he is feeling a little better today, mood is little better and anxiety not as bad. No AH, no SI; appreciates medication changes and wants to continue with them Plan: CV Q 15 minute checks Continue Zyprexa 10 mg q.h.s. Increase to Zoloft 100 mg for anxiety, depression and PTSD symptoms Add clonidine p.r.n. Continue prazosin 3 mg q.h.s. Patient only drank for 2 days and not on withdrawal Refused labs, including hemoglobin A1c, lipid panel Patient educated on: diagnosis and medication risk/benefits Informed Consent: understands Reason for continued inpatient stay Substantial Risk for: rapid decompensation Time Spent With Patient Time: Total time managing care of this patient today ____ minutes.
[2024-10-12 20:00] VITALS: BP 109/65; PULSE 101; RESP 16; TEMP 37.1; O2SAT 98
[2024-10-12 20:54] VITALS: BP 109/68
[2024-10-13 08:00] VITALS: BP 106/55; PULSE 70; RESP 19; TEMP 36.9; O2SAT 99
--- NOTE | 2024-10-13 10:08 | HO.PSYCHPN ---
Subjective Subjective Date of Service: 10/13/24 Reason For Visit: f20.89 f14.20 Interim History: met with patient; discussed with team; seen with Client Evaluator Thao pt says no AH; but had a nightmare last night where he was told to kill himself and he did...no SI at all but upsetting experince to have had. Discussed hx of trauma and how PTSD affects a person and pt understands that therapy will be very helpful and says he would like to engae once discharged. Discussed meds and he agrees to increase Zoloft. discussed substance abuse and pt says alcohol is his biggest struggle and only when he relapses with alcohol that he becomes vulnerable to cocaine/fentanyl. Discussed tx; he does not want a program; discussed MAT and pt would like to try Natlrexone (reviewed risks/side-effects) and would like a monomer recovery operator ([facility] ordered) Mental Status Exam Mental Status Exam Narrative: Pt is alert and oriented; behavior is a little more social; cooperative, friendly on approach; calm; in bed much of the day; patient is not in distress; dressed in hospital attire, adequate hygiene; mood is described as ok and affect congruent, overall brighter; eye contact appropriate; Speech is normal rate, volume and prosody and not pressured; some psychomotor retardation present; thought process is organized and goal directed; Thought content is on stressors, trauma memories, tx; otherwise pertinent to relevant topics and without any delusional content, paranoid ideations or grandiosity; denies any SI/HI. No AH; Patients insight and judgment fair Diagnostics Vital Signs (24Hr): Vital Signs - 24 hr 10/12/24 20:00 10/12/24 20:54 10/13/24 08:00 Temperature 98.7 F 98.5 F Pulse Rate 101 H 70 Respiratory Rate 16 19 Blood Pressure 109/65 109/68 106/55 L Pulse Oximetry 98 99 Oxygen Delivery Method Room Air Room Air BMI result Body Mass Index 28.3 Medications Medications Current Medications Acetaminophen (Acetaminophen 325 Mg Tablet) 650 mg PO Q6H PRN PRN Reason: Headache/Pain, Scale 1-10 Last Admin: 10/11/24 17:03 Dose: 650 mg Al Hydroxide/Mg Hydroxide (Magnesium Hydrox/Alum Hydrox 30 Ml Oral.Susp) 30 ml PO Q6H PRN PRN Reason: Heartburn/Nausea Clonidine HCl (Clonidine Hcl 0.1 Mg Tablet) 0.1 mg PO Q4H PRN; Protocol PRN Reason: moderate anxiety Last Admin: 10/13/24 04:09 Dose: 0.1 mg Cyanocobalamin (Cyanocobalamin (Vitamin B-12) 1,000 Mcg Tablet) 1,000 mcg PO DAILY [facility] Last Admin: 10/13/24 08:16 Dose: 1,000 mcg Folic Acid (Folic Acid 1 Mg Tablet) 1 mg PO DAILY [facility] Last Admin: 10/13/24 08:16 Dose: 1 mg Hydroxyzine HCl (Hydroxyzine Hcl 25 Mg Tablet) 25 mg PO Q6H PRN PRN Reason: mild anxiety Ibuprofen (Ibuprofen 600 Mg Tablet) 600 mg PO Q6H PRN PRN Reason: arthritic pain Last Admin: 10/12/24 18:43 Dose: 600 mg Magnesium Hydroxide (Milk Of Magnesia 30 Ml Oral.Susp) 30 ml PO DAILY PRN PRN Reason: Constipation Nicotine (Nicotine 21 Mg Patch.Td24) 21 mg TRANSDERMA DAILY PRN PRN Reason: nicotine craving Nicotine Polacrilex (Nicotine Polacrilex 2 Mg Gum) 2 mg BUCCAL Q2H PRN PRN Reason: Nicotine Cravings Olanzapine (Olanzapine 5 Mg Tablet) 5 mg PO BID PRN PRN Reason: agitation Olanzapine (Olanzapine 10 Mg Tablet) 10 mg PO BEDTIME [facility] Last Admin: 10/12/24 20:54 Dose: 10 mg Omeprazole (Omeprazole 40 Mg Capsule.Dr) 40 mg PO DAILY@0630 [facility] Last Admin: 10/13/24 06:57 Dose: 40 mg Prazosin HCl (Prazosin Hcl 1 Mg Capsule) 3 mg PO BEDTIME [facility]; Protocol Last Admin: 10/12/24 20:54 Dose: 3 mg Sertraline HCl (Sertraline Hcl 100 Mg Tablet) 100 mg PO DAILY [facility] Last Admin: 10/13/24 08:16 Dose: 100 mg Thiamine HCl (Thiamine Hcl 100 Mg Tablet) 100 mg PO DAILY [facility] Last Admin: 10/13/24 08:16 Dose: 100 mg Trazodone HCl (Trazodone Hcl 50 Mg Tablet) 150 mg PO BEDTIME [facility] Last Admin: 10/12/24 20:54 Dose: 150 mg Trazodone HCl (Trazodone Hcl 50 Mg Tablet) 50 mg PO BEDTIME PRN PRN Reason: Insomnia Allergies Allergies Allergy/AdvReac Type Severity Reaction Status Date / Time No Known Allergies Allergy Verified 07/08/20 12:32 Assessment & Plan Assessment & Plan (1) Schizoaffective disorder: Status: Acute Code(s): F25.9 - Schizoaffective disorder, unspecified (2) Alcohol use disorder: Status: Acute Code(s): F10.90 - Alcohol use, unspecified, uncomplicated (3) Cocaine use disorder: Status: Acute Code(s): F14.10 - Cocaine abuse, uncomplicated (4) Opioid use disorder: Status: Acute Code(s): F11.90 - Opioid use, unspecified, uncomplicated Plan Patient is a 59-year-old male with history of schizoaffective disorder, alcohol use disorder, opiate use disorder who was discharged from 4 weeks ago who presents again for depression and command auditory hallucinations to harm himself. Patient asks to keep interview short because he has not slept for 2 days and is very tired. Patient reports that he remained on his medications and felt that they were overall helpful. He says voices remain but he felt better anyway. He says for some unknown reason AH returned a few days ago; he says that this is the only reason he relapsed with alcohol (drinking for 2 days), fentanyl/cocaine. Patient says that initially he did have some suicidal thoughts but currently no longer; voices are telling him to harm himself but he does not want to. Patient does make mentioned that his job is stressful which he thinks is contributory but is vague on the details. He thinks he should remain on current medication regimen since it was helpful. Impression/clinical reasoning: Patient says that overall medications were helpful so will continue patient on Zyprexa 10 mg q.h.s., Zoloft 75 mg and prazosin 3 mg q.h.s.. Will likely increase some medication since it seems that some type of psychosocial stressors may have triggered return of symptoms. Reviewed chart: tried Haldol considered Naltrexone and antabuse zyprexa 15mg too much hx of nightmares of him killing himself hx of trauma, memories of events; mom abandoned him Hospital course: 10/10 feeling down and last night AH as falling asleep. bad dream of him doing what voices were telling him to do and in dream killed himself, then woke up in a panicked sweat... Regarding efficacy of medications patient clarified and said that auditory hallucinations did resolve on medications and only returned a few days before this admission -patient shared about some traumatic events and ongoing PTSD symptoms and anxiety -discussed risks/side-effect of antipshcotics (likely cause of dry mouth) -patient agreed to increased Zoloft and add clonidine (risks/side effects reviewed) 10/11 Patient says he is feeling a little better today, mood is little better and anxiety not as bad. No AH, no SI; appreciates medication changes and wants to continue with them 10/13 pt says no AH; but had a nightmare last night where he was told to kill himself and he did...no SI at all but upsetting experince to have had. Discussed hx of trauma and how PTSD affects a person and pt understands that therapy will be very helpful and says he would like to engae once discharged. Discussed meds and he agrees to increase Zoloft. discussed substance abuse and pt says alcohol is his biggest struggle and only when he relapses with alcohol that he becomes vulnerable to cocaine/fentanyl. Discussed tx; he does not want a program; discussed MAT and pt would like to try Natlrexone (reviewed risks/side-effects) and would like a monomer recovery operator ([facility] ordered) Plan: CV Q 15 minute checks Continue Zyprexa 10 mg q.h.s. START Naltrexon 25mg for etoh cravings; -labs ordered to monitor liver Increase to Zoloft 150 mg for anxiety, depression and PTSD symptoms Add clonidine p.r.n. Continue prazosin 3 mg q.h.s. Patient only drank for 2 days and not on withdrawal Refused labs, including hemoglobin A1c, lipid panel Patient educated on: diagnosis, medication risk/benefits, substance abuse and therapeutic strategies Informed Consent: understands Reason for continued inpatient stay Substantial Risk for: stable for discharge and rapid decompensation Time Spent With Patient Time: Total time managing care of this patient today ____ minutes.
--- NOTE | 2024-10-13 15:31 | PC.NURSE ---
Received a consult for outpatient recovery support and met with Dmitriy with the assistance of house water pump servicer Consuelo. Dmitriy was started on Naltrexone by inpatient provider. He was offered [facility] [employer] [facility] through [facility] however, he does not currently have a phone for contact. Left information for Dmitriy to reach out for more assistance if needed. Will touch base with Dmitriy's nursing home social worker to arrange follow up MAT.
[2024-10-13 19:54] VITALS: BP 129/62; PULSE 74; RESP 16; TEMP 37; O2SAT 99
[2024-10-14 09:01] VITALS: BP 106/51; PULSE 56; TEMP 37.3; O2SAT 98
--- NOTE | 2024-10-14 10:02 | P.PNPSI_ITS ---
Subjective Subjective Date of Service: 10/14/24 Reason For Visit: f20.89 f14.20 Interim History: met with patient; discussed with team Patient reports that he is feeling better. No nightmares last night and slept well. Mood is much improved and anxiety down. No medication side effects and patient agrees with labs to monitor liver and response to naltrexone; if tolerated patient will continue with comprehensive care post discharge. Mental Status Exam Mental Status Exam Narrative: Pt is alert and oriented; behavior is a little more social; cooperative, friendly on approach; calm; in bed much of the day; patient is not in distress; dressed in hospital attire, adequate hygiene; mood is described as good and affect congruent, remains brighter; eye contact appropriate; Speech is normal rate, volume and prosody and not pressured; some psychomotor retardation present; thought process is organized and goal directed; Thought content is on stressors, trauma memories, tx; otherwise pertinent to relevant topics and without any delusional content, paranoid ideations or grandiosity; denies any SI/HI. No AH; Patients insight and judgment fair Diagnostics Vital Signs (24Hr): Vital Signs - 24 hr 10/13/24 19:54 10/14/24 09:01 Temperature 98.6 F 99.1 F Pulse Rate 74 56 Respiratory Rate 16 Blood Pressure 129/62 106/51 L Pulse Oximetry 99 98 Oxygen Delivery Method Room Air Room Air BMI result Body Mass Index 28.3 Medications Medications Current Medications Acetaminophen (Acetaminophen 325 Mg Tablet) 650 mg PO Q6H PRN PRN Reason: Headache/Pain, Scale 1-10 Last Admin: 10/11/24 17:03 Dose: 650 mg Al Hydroxide/Mg Hydroxide (Magnesium Hydrox/Alum Hydrox 30 Ml Oral.Susp) 30 ml PO Q6H PRN PRN Reason: Heartburn/Nausea Clonidine HCl (Clonidine Hcl 0.1 Mg Tablet) 0.1 mg PO Q4H PRN; Protocol PRN Reason: moderate anxiety Last Admin: 10/13/24 21:39 Dose: 0.1 mg Cyanocobalamin (Cyanocobalamin (Vitamin B-12) 1,000 Mcg Tablet) 1,000 mcg PO DAILY [facility] Last Admin: 10/14/24 09:45 Dose: 1,000 mcg Folic Acid (Folic Acid 1 Mg Tablet) 1 mg PO DAILY [facility] Last Admin: 10/14/24 09:45 Dose: 1 mg Hydroxyzine HCl (Hydroxyzine Hcl 25 Mg Tablet) 25 mg PO Q6H PRN PRN Reason: mild anxiety Ibuprofen (Ibuprofen 600 Mg Tablet) 600 mg PO Q6H PRN PRN Reason: arthritic pain Last Admin: 10/13/24 18:04 Dose: 600 mg Magnesium Hydroxide (Milk Of Magnesia 30 Ml Oral.Susp) 30 ml PO DAILY PRN PRN Reason: Constipation Naltrexone HCl (Naltrexone Hcl 50 Mg Tablet) 25 mg PO DAILY [facility] Last Admin: 10/14/24 09:45 Dose: 25 mg Nicotine (Nicotine 21 Mg Patch.Td24) 21 mg TRANSDERMA DAILY PRN PRN Reason: nicotine craving Nicotine Polacrilex (Nicotine Polacrilex 2 Mg Gum) 2 mg BUCCAL Q2H PRN PRN Reason: Nicotine Cravings Olanzapine (Olanzapine 5 Mg Tablet) 5 mg PO BID PRN PRN Reason: agitation Olanzapine (Olanzapine 10 Mg Tablet) 10 mg PO BEDTIME [facility] Last Admin: 10/13/24 21:39 Dose: 10 mg Omeprazole (Omeprazole 40 Mg Capsule.Dr) 40 mg PO DAILY@0630 [facility] Last Admin: 10/14/24 06:34 Dose: 40 mg Prazosin HCl (Prazosin Hcl 1 Mg Capsule) 3 mg PO BEDTIME [facility]; Protocol Last Admin: 10/13/24 21:39 Dose: 3 mg Sertraline HCl (Sertraline Hcl 50 Mg Tablet) 150 mg PO DAILY [facility] Last Admin: 10/14/24 09:43 Dose: 150 mg Thiamine HCl (Thiamine Hcl 100 Mg Tablet) 100 mg PO DAILY [facility] Last Admin: 10/14/24 09:43 Dose: 100 mg Trazodone HCl (Trazodone Hcl 50 Mg Tablet) 150 mg PO BEDTIME [facility] Last Admin: 10/13/24 21:39 Dose: 150 mg Trazodone HCl (Trazodone Hcl 50 Mg Tablet) 50 mg PO BEDTIME PRN PRN Reason: Insomnia Allergies Allergies Allergy/AdvReac Type Severity Reaction Status Date / Time No Known Allergies Allergy Verified 07/08/20 12:32 Assessment & Plan Assessment & Plan (1) Schizoaffective disorder: Status: Acute Code(s): F25.9 - Schizoaffective disorder, unspecified (2) Alcohol use disorder: Status: Acute Code(s): F10.90 - Alcohol use, unspecified, uncomplicated (3) Cocaine use disorder: Status: Acute Code(s): F14.10 - Cocaine abuse, uncomplicated (4) Opioid use disorder: Status: Acute Code(s): F11.90 - Opioid use, unspecified, uncomplicated Plan Patient is a 59-year-old male with history of schizoaffective disorder, alcohol use disorder, opiate use disorder who was discharged from 4 weeks ago who presents again for depression and command auditory hallucinations to harm himself. Patient asks to keep interview short because he has not slept for 2 days and is very tired. Patient reports that he remained on his medications and felt that they were overall helpful. He says voices remain but he felt better anyway. He says for some unknown reason AH returned a few days ago; he says that this is the only reason he relapsed with alcohol (drinking for 2 days), fentanyl/cocaine. Patient says that initially he did have some suicidal thoughts but currently no longer; voices are telling him to harm himself but he does not want to. Patient does make mentioned that his job is stressful which he thinks is contributory but is vague on the details. He thinks he should remain on current medication regimen since it was helpful. Impression/clinical reasoning: Patient says that overall medications were helpful so will continue patient on Zyprexa 10 mg q.h.s., Zoloft 75 mg and prazosin 3 mg q.h.s.. Will likely increase some medication since it seems that some type of psychosocial stressors may have triggered return of symptoms. Reviewed chart: tried Haldol considered Naltrexone and antabuse zyprexa 15mg too much hx of nightmares of him killing himself hx of trauma, memories of events; mom abandoned him Hospital course: 10/10 feeling down and last night AH as falling asleep. bad dream of him doing what voices were telling him to do and in dream killed himself, then woke up in a panicked sweat... Regarding efficacy of medications patient clarified and said that auditory hallucinations did resolve on medications and only returned a few days before this admission -patient shared about some traumatic events and ongoing PTSD symptoms and anxiety -discussed risks/side-effect of antipshcotics (likely cause of dry mouth) -patient agreed to increased Zoloft and add clonidine (risks/side effects reviewed) 10/11 Patient says he is feeling a little better today, mood is little better and anxiety not as bad. No AH, no SI; appreciates medication changes and wants to continue with them 10/13 pt says no AH; but had a nightmare last night where he was told to kill himself and he did...no SI at all but upsetting experince to have had. Discussed hx of trauma and how PTSD affects a person and pt understands that therapy will be very helpful and says he would like to engae once discharged. Discussed meds and he agrees to increase Zoloft. discussed substance abuse and pt says alcohol is his biggest struggle and only when he relapses with alcohol that he becomes vulnerable to cocaine/fentanyl. Discussed tx; he does not want a program; discussed MAT and pt would like to try Natlrexone (reviewed risks/side-effects) and would like a continuous improvement coach ([facility] ordered) 10/14 Patient reports that he is feeling better. No nightmares last night and slept well. Mood is much improved and anxiety down. No medication side effects and patient agrees with labs to monitor liver and response to naltrexone; if tolerated patient will continue with comprehensive care post discharge. Patient asked for help getting prescriber, therapist and PCP. -Monitor liver and labs ordered Plan: CV Q 15 minute checks Continue Zyprexa 10 mg q.h.s. Naltrexon 25mg for etoh cravings; will titrate to 50 after few days -labs ordered to monitor liver Increase to Zoloft 150 mg for anxiety, depression and PTSD symptoms Add clonidine p.r.n. Continue prazosin 3 mg q.h.s. Patient only drank for 2 days and not on withdrawal Refused labs, including hemoglobin A1c, lipid panel Patient educated on: diagnosis, medication risk/benefits, substance abuse and therapeutic strategies Informed Consent: understands Reason for continued inpatient stay Substantial Risk for: med/psych decompensation Time Spent With Patient Time: Total time managing care of this patient today ____ minutes.
[2024-10-14] MEDS: Magnesium Hydrox/Alum Hydrox 30 ML ORAL.SUSP PO (10:08)
[2024-10-14 19:53] VITALS: BP 111/61; PULSE 71; RESP 16; TEMP 37.2; O2SAT 98
[2024-10-14 21:00] VITALS: BP 112/68
[2024-10-15 08:00] VITALS: BP 112/54; PULSE 61; TEMP 37.2; O2SAT 100
--- NOTE | 2024-10-15 08:43 | P.PNPSI_ITS ---
Subjective Subjective Date of Service: 10/15/24 Reason For Visit: f20.89 f14.20 Interim History: Met with patient; discussed with team; patient seen with swimming pool installer and servicer Luna Patient reports that he is doing well. Good mood, feels optimistic about staying sober and stable. Regarding naltrexone, patient Says it was too early for lab draws this morning but apologizes and says he will do it tomorrow morning. No AVH. Mental Status Exam Mental Status Exam Narrative: Pt is alert and oriented; behavior is a little more social; cooperative, friendly on approach; calm; in bed much of the day; patient is not in distress; dressed in hospital attire, adequate hygiene; mood is described as good and affect congruent, remains brighter; eye contact appropriate; Speech is normal rate, volume and prosody and not pressured; some psychomotor retardation present; thought process is organized and goal directed; Thought content is on stressors, trauma memories, tx; otherwise pertinent to relevant topics and without any delusional content, paranoid ideations or grandiosity; denies any SI/HI. No AH; Patients insight and judgment fair Diagnostics Vital Signs (24Hr): Vital Signs - 24 hr 10/14/24 09:01 10/14/24 19:53 10/14/24 21:00 Temperature 99.1 F 98.9 F Pulse Rate 56 71 Respiratory Rate 16 Blood Pressure 106/51 L 111/61 112/68 Pulse Oximetry 98 98 Oxygen Delivery Method Room Air Room Air 10/15/24 08:00 Temperature 99 F Pulse Rate 61 Respiratory Rate Blood Pressure 112/54 L Pulse Oximetry 100 Oxygen Delivery Method Room Air BMI result Body Mass Index 28.3 Medications Medications Current Medications Acetaminophen (Acetaminophen 325 Mg Tablet) 650 mg PO Q6H PRN PRN Reason: Headache/Pain, Scale 1-10 Last Admin: 10/11/24 17:03 Dose: 650 mg Al Hydroxide/Mg Hydroxide (Magnesium Hydrox/Alum Hydrox 30 Ml Oral.Susp) 30 ml PO Q6H PRN PRN Reason: Heartburn/Nausea Last Admin: 10/14/24 10:08 Dose: 30 ml Clonidine HCl (Clonidine Hcl 0.1 Mg Tablet) 0.1 mg PO Q4H PRN; Protocol PRN Reason: moderate anxiety Last Admin: 10/13/24 21:39 Dose: 0.1 mg Cyanocobalamin (Cyanocobalamin (Vitamin B-12) 1,000 Mcg Tablet) 1,000 mcg PO DAILY [facility] Last Admin: 10/15/24 08:19 Dose: 1,000 mcg Folic Acid (Folic Acid 1 Mg Tablet) 1 mg PO DAILY [facility] Last Admin: 10/15/24 08:19 Dose: 1 mg Hydroxyzine HCl (Hydroxyzine Hcl 25 Mg Tablet) 25 mg PO Q6H PRN PRN Reason: mild anxiety Ibuprofen (Ibuprofen 600 Mg Tablet) 600 mg PO Q6H PRN PRN Reason: arthritic pain Last Admin: 10/14/24 20:02 Dose: 600 mg Magnesium Hydroxide (Milk Of Magnesia 30 Ml Oral.Susp) 30 ml PO DAILY PRN PRN Reason: Constipation Naltrexone HCl (Naltrexone Hcl 50 Mg Tablet) 25 mg PO DAILY [facility] Last Admin: 10/15/24 08:18 Dose: 25 mg Nicotine (Nicotine 21 Mg Patch.Td24) 21 mg TRANSDERMA DAILY PRN PRN Reason: nicotine craving Nicotine Polacrilex (Nicotine Polacrilex 2 Mg Gum) 2 mg BUCCAL Q2H PRN PRN Reason: Nicotine Cravings Olanzapine (Olanzapine 5 Mg Tablet) 5 mg PO BID PRN PRN Reason: agitation Olanzapine (Olanzapine 10 Mg Tablet) 10 mg PO BEDTIME [facility] Last Admin: 10/14/24 20:59 Dose: 10 mg Omeprazole (Omeprazole 40 Mg Capsule.Dr) 40 mg PO DAILY@0630 [facility] Last Admin: 10/15/24 06:20 Dose: 40 mg Prazosin HCl (Prazosin Hcl 1 Mg Capsule) 3 mg PO BEDTIME [facility]; Protocol Last Admin: 10/14/24 21:00 Dose: 3 mg Sertraline HCl (Sertraline Hcl 50 Mg Tablet) 150 mg PO DAILY [facility] Last Admin: 10/15/24 08:19 Dose: 150 mg Thiamine HCl (Thiamine Hcl 100 Mg Tablet) 100 mg PO DAILY [facility] Last Admin: 10/15/24 08:18 Dose: 100 mg Trazodone HCl (Trazodone Hcl 50 Mg Tablet) 150 mg PO BEDTIME [facility] Last Admin: 10/14/24 20:59 Dose: 150 mg Trazodone HCl (Trazodone Hcl 50 Mg Tablet) 50 mg PO BEDTIME PRN PRN Reason: Insomnia Allergies Allergies Allergy/AdvReac Type Severity Reaction Status Date / Time No Known Allergies Allergy Verified 07/08/20 12:32 Assessment & Plan Assessment & Plan (1) Schizoaffective disorder: Status: Acute Code(s): F25.9 - Schizoaffective disorder, unspecified (2) Alcohol use disorder: Status: Acute Code(s): F10.90 - Alcohol use, unspecified, uncomplicated (3) Cocaine use disorder: Status: Acute Code(s): F14.10 - Cocaine abuse, uncomplicated (4) Opioid use disorder: Status: Acute Code(s): F11.90 - Opioid use, unspecified, uncomplicated Plan Patient is a 59-year-old male with history of schizoaffective disorder, alcohol use disorder, opiate use disorder who was discharged from 4 weeks ago who presents again for depression and command auditory hallucinations to harm himself. Patient asks to keep interview short because he has not slept for 2 days and is very tired. Patient reports that he remained on his medications and felt that they were overall helpful. He says voices remain but he felt better anyway. He says for some unknown reason AH returned a few days ago; he says bruno t this is the only reason he relapsed with alcohol (drinking for 2 days), fentanyl/cocaine. Patient says that initially he did have some suicidal thoughts but currently no longer; voices are telling him to harm himself but he does not want to. Patient does make mentioned that his job is stressful which he thinks is contributory but is vague on the details. He thinks he should remain on current medication regimen since it was helpful. Impression/clinical reasoning: Patient says that overall medications were helpful so will continue patient on Zyprexa 10 mg q.h.s., Zoloft 75 mg and prazosin 3 mg q.h.s.. Will likely increase some medication since it seems that some type of psychosocial stressors may have triggered return of symptoms. Reviewed chart: tried Haldol considered Naltrexone and antabuse zyprexa 15mg too much hx of nightmares of him killing himself hx of trauma, memories of events; mom abandoned him Hospital course: 10/10 feeling down and last night AH as falling asleep. bad dream of him doing what voices were telling him to do and in dream killed himself, then woke up in a panicked sweat... Regarding efficacy of medications patient clarified and said that auditory hallucinations did resolve on medications and only returned a few days before this admission -patient shared about some traumatic events and ongoing PTSD symptoms and anxiety -discussed risks/side-effect of antipshcotics (likely cause of dry mouth) -patient agreed to increased Zoloft and add clonidine (risks/side effects reviewed) 10/11 Patient says he is feeling a little better today, mood is little better and anxiety not as bad. No AH, no SI; appreciates medication changes and wants to continue with them 10/13 pt says no AH; but had a nightmare last night where he was told to kill himself and he did...no SI at all but upsetting experince to have had. Discussed hx of trauma and how PTSD affects a person and pt understands that therapy will be very helpful and says he would like to engae once discharged. Discussed meds and he agrees to increase Zoloft. discussed substance abuse and pt says alcohol is his biggest struggle and only when he relapses with alcohol that he becomes vulnerable to cocaine/fentanyl. Discussed tx; he does not want a program; discussed MAT and pt would like to try Natlrexone (reviewed risks/side-effects) and would like a recovery unit operator ([facility] ordered) 10/14 Patient reports that he is feeling better. No nightmares last night and slept well. Mood is much improved and anxiety down. No medication side effects and patient agrees with labs to monitor liver and response to naltrexone; if tolerated patient will continue with comprehensive care post discharge. Patient asked for help getting prescriber, therapist and PCP. -Monitor liver and labs ordered 10/15 Patient reports that he is doing well. Good mood, feels optimistic about staying sober and stable. Regarding naltrexone, patient Says it was too early for lab draws this morning but apologizes and says he will do it tomorrow morning. No AVH. Patient is at baseline. He is not in imminent risk for harm to self or others and appropriate to return to the community for treatment Plan: CV Q 15 minute checks Continue Zyprexa 10 mg q.h.s. Naltrexon 25mg for etoh cravings; will titrate to 50 after few days -labs ordered to monitor liver Increase to Zoloft 150 mg for anxiety, depression and PTSD symptoms Add clonidine p.r.n. Continue prazosin 3 mg q.h.s. Patient only drank for 2 days and not on withdrawal Refused labs, including hemoglobin A1c, lipid panel, however these done recently August 2024 Patient educated on: diagnosis, medication risk/benefits and therapeutic strategies Informed Consent: understands Reason for continued inpatient stay Substantial Risk for: stable for discharge Time Spent With Patient Time: Total time managing care of this patient today ____ minutes.
[2024-10-15 20:00] VITALS: BP 123/62; PULSE 60; TEMP 37; O2SAT 100
--- NOTE | 2024-10-16 09:10 | PM.PSYDC ---
DS: Providers Provider Date of Service: 10/16/24 Date of admission: 10/08/24 18:22 Date of discharge: 10/16/24 Primary care physician: Unknown Physician Attending physician on admission: Marty Veliz Consults: 10/08/24 18:40 Consult to Hospitalist Routine Comment: Consulting Provider: [facility] Hospitalists Reason For Exam: New external admit- H&P 10/13/24 11:39 Consult to Comprehensive [facility] Routine Consulting Provider: [facility] Attending physician on discharge: Marty Veliz DS: Diagnosis Discharge Diagnosis (1) Schizoaffective disorder: Status: Acute (2) Alcohol use disorder: Status: Acute (3) Cocaine use disorder: Status: Acute (4) Opioid use disorder: Status: Acute DS: Medications Discharge Medications Home Medications: Previous Rx's ?Medication ?Instructions ?Recorded cyanocobalamin (vitamin B-12) 1,000 mcg PO DAILY 30 days #30 tabs 10/16/24 1,000 mcg tablet (Vitamin B-12) olanzapine 10 mg tablet 10 mg PO BEDTIME 30 days #30 tabs 10/16/24 omeprazole 40 mg capsule,delayed 40 mg PO DAILY@0630 30 days #30 10/16/24 release caps prazosin 1 mg capsule 3 mg PO BEDTIME 30 days #90 caps 10/16/24 sertraline 150 mg capsule 150 mg PO DAILY 30 days #30 caps 10/16/24 trazodone 100 mg tablet 150 mg (1.5 x 100 mg) PO BEDTIME 10/16/24 PRN insomnia 30 days #45 tabs Mental Status Exam Mental Status Exam Narrative: Pt is alert and oriented; behavior is a little more social; cooperative, friendly on approach; calm; patient is not in distress; dressed in appropriate attire, adequate hygiene; mood is described as good and affect congruent, remains brighter; eye contact appropriate; Speech is normal rate, volume and prosody and not pressured; no psychomotor retardation present; thought process is organized and goal directed; Thought on aftercare plans; otherwise pertinent to relevant topics and without any delusional content, paranoid ideations or grandiosity; denies any SI/HI. No AVH; Patients insight and judgment fair DS: Summary Hospital Course Hospital Course: HPI: Patient is a 59-year-old male with history of schizoaffective disorder, alcohol use disorder, opiate use disorder who was discharged from 4 weeks ago who presents again for depression and command auditory hallucinations to harm himself. Patient asks to keep interview short because he has not slept for 2 days and is very tired. Patient reports that he remained on his medications and felt that they were overall helpful. He says voices remain but he felt better anyway. He says for some unknown reason AH returned a few days ago; he says that this is the only reason he relapsed with alcohol (drinking for 2 days), fentanyl/cocaine. Patient says that initially he did have some suicidal thoughts but currently no longer; voices are telling him to harm himself but he does not want to. Patient does make mentioned that his job is stressful which he thinks is contributory but is vague on the details. He thinks he should remain on current medication regimen since it was helpful. Patient says that overall medications were helpful so will continue patient on Zyprexa 10 mg q.h.s., Zoloft 75 mg and prazosin 3 mg q.h.s.. Will likely increase some medication since it seems that some type of psychosocial stressors may have triggered return of symptoms. Reviewed chart: tried Haldol considered Naltrexone and antabuse zyprexa 15mg too much hx of nightmares of him killing himself hx of trauma, memories of events; mom abandoned him Hospital course: 10/10 feeling down and last night AH as falling asleep. bad dream of him doing what voices were telling him to do and in dream killed himself, then woke up in a panicked sweat... Regarding efficacy of medications patient clarified and said that auditory hallucinations did resolve on medications and only returned a few days before this admission -patient shared about some traumatic events and ongoing PTSD symptoms and anxiety -discussed risks/side-effect of antipshcotics (likely cause of dry mouth) -patient agreed to increased Zoloft and add clonidine (risks/side effects reviewed) 10/11 Patient says he is feeling a little better today, mood is little better and anxiety not as bad. No AH, no SI; appreciates medication changes and wants to continue with them 10/13 pt says no AH; but had a nightmare last night where he was told to kill himself and he did...no SI at all but upsetting experince to have had. Discussed hx of trauma and how PTSD affects a person and pt understands that therapy will be very helpful and says he would like to engae once discharged. Discussed meds and he agrees to increase Zoloft. discussed substance abuse and pt says alcohol is his biggest struggle and only when he relapses with alcohol that he becomes vulnerable to cocaine/fentanyl. Discussed tx; he does not want a program; discussed MAT and pt would like to try Natlrexone (reviewed risks/side-effects) and would like a technology coach ([facility] ordered) 10/14 Patient reports that he is feeling better. No nightmares last night and slept well. Mood is much improved and anxiety down. No medication side effects and patient agrees with labs to monitor liver and response to naltrexone; if tolerated patient will continue with comprehensive care post discharge. Patient asked for help getting prescriber, therapist and PCP. -Monitor liver and labs ordered 10/15 Patient reports that he is doing well. Good mood, feels optimistic about staying sober and stable. Regarding naltrexone, patient Says it was too early for lab draws this morning but apologizes and says he will do it tomorrow morning. No AVH. Impression: Patient is at baseline. Mood remains much improved and depression has abated; anxiety down. Patient is optimistic and future oriented and looking forward to engaging with a therapist. He has an appointment with comprehensive Care (where he may restart naltrexone-had refused liver labs so naltrexone was not continued on discharge). Patient of course remains vulnerable to relapse and decompensation however this is a chronic struggle for him and 1 that will not resolve with longer stay on inpatient unit. Rather it necessitates consistent commitment to outpatient treatment and sobriety with which patient says he will engage. He is not in imminent risk for harm to self or others and appropriate to return to the community for treatment. Request for discharge honored Medications: Zoloft 150 mg Continued Zyprexa 10 mg q.h.s. Continue prazosin 3 mg q.h.s. = Time spent discussing smoking cessation with patient: 3 to 10 minutes Status at Discharge Functional status at discharge: independent ambulation Overall status at discharge: patient is back to baseline Time Spent with Patient Time attestation: Total time managing care of this patient today _40___ minutes. Time spent: Greater than 30 minutes Specific discharge activities: Patient; discussed with team; charting; prescriptions Discharge Plan Discharge Anticipated Discharge Date/Time: 10/16/24 11:30 Patient Disposition: Home, Self-Care Discharge Diagnosis: schizoaffective disorder, depressed type Referrals: [facility]: Blair Burgos (therapy) [Other] - 10/24/24 10:00 am Referral Note: Hospital discharge appointment Appointment in person at [facility] for Diagnostic evaluation for therapy services. [facility]: Estefany Cronin (psychiatry) [Other] - 11/20/24 9:00 am Referral Note: Hospital Discharge appointment Appointment is in person at [facility] in [place] for psychiatric evaluation/medication management Physician,Kandice J [Primary Care Provider, Medical] - 1 Week Discharge Medications: Continued prazosin 1 mg Capsule 3 mg PO BEDTIME 30 Days Qty: 90 0RF Protocol: Hold for SBP< HOLD for SBP < : 90 cyanocobalamin (vitamin B-12) [Vitamin B-12] 1,000 mcg Tablet 1,000 mcg PO DAILY 30 Days Qty: 30 0RF olanzapine 10 mg Tablet 10 mg PO BEDTIME 30 Days Qty: 30 0RF omeprazole 40 mg Capsule,Delayed Release(Dr/Ec) 40 mg PO DAILY@0630 30 Days Qty: 30 0RF Changed trazodone 100 mg Tablet 150 mg PO BEDTIME PRN (Reason: insomnia) 30 Days Qty: 45 0RF sertraline 150 mg capsule 150 mg PO DAILY 30 Days Qty: 30 0RF Discontinued folic acid 1 mg Tablet 1 mg PO DAILY 30 Days Qty: 30 0RF thiamine mononitrate (vit B1) 100 mg Tablet 100 mg PO DAILY 30 Days Qty: 30 0RF Discharge Orders: Discharge Order (Routine); Ordered 10/16/24 Ordered By: Marty Veliz Diet: Regular diet Activity on Discharge: As tolerated Stand Alone Forms: Patient Portal Discharge page Print Language: Lao Care Plan Goals: Maintain mood and safe behaviors Take medications as prescribed Continue to pursue sobriety Practice coping skills Continue with outpatient providers and reach out to them as needed Health Concerns: Mood stability and behaviors Sobriety Plan of Treatment: Follow up with your PCP, psychiatric provider and other outpatient providers regarding above concerns Take medications as prescribed Assessment: Risk assessment at time of discharge:? Patient was interviewed prior to discharge and found to be fully oriented and without any SI or HI. Patient has improved insight and judgment and wants to continue treatment. Patient is not in imminent risk of harm to self or others and has a safety plan that includes presenting to the closest ER or calling 911 if feeling unsafe.? Patient has been observed closely by nursing and unit staff throughout admission; patient has not engaged in any behaviors that suggest dangerousness to self or others and has demonstrated appropriate behaviors and impulse control
[2024-10-16] MEDS: Naloxone HCl Nasal TAKE HOME 4 MG SPRAY 8 MG NOSTRILALT (10:18)
== END 2024-10-16 11:21 | disposition home or self-care (01) | DRG 750 ==
PROVIDERS: Admitting Provider Psychiatry & Neurology Psychiatry; Visit Provider Psychiatry & Neurology Psychiatry
DX: F25.1 Schizoaffective disorder, depressive type (principal); D51.9 Vitamin B12 deficiency anemia, unspecified; F10.90 Alcohol use, unspecified, uncomplicated; F11.90 Opioid use, unspecified, uncomplicated; F14.10 Cocaine abuse, uncomplicated; Z79.899 Other long term (current) drug therapy

== ENCOUNTER → 2024-10-08 18:22 | Outpatient (BNV) | payer OTHER, SELFPAY | PROVIDERS: Admitting Provider Psychiatry & Neurology Psychiatry; Visit Provider Psychiatry & Neurology Psychiatry | DX: F25.9 Schizoaffective disorder, unspecified (principal); F14.10 Cocaine abuse, uncomplicated; F10.90 Alcohol use, unspecified, uncomplicated; F11.90 Opioid use, unspecified, uncomplicated | CPT/HCPCS: 99231; 99232 ==

== ENCOUNTER → 2024-10-08 18:22 | Outpatient (BNV) | payer MEDICAID, SELFPAY | PROVIDERS: Admitting Provider Psychiatry & Neurology Psychiatry; Visit Provider Nurse Practitioner Family | DX: R44.0 Auditory hallucinations (principal) | CPT/HCPCS: 99221 ==